=== PATIENT | female | born 2005 | race Caucasian/White ===

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

== ENCOUNTER → 2023-01-25 | Outpatient (CLI) | payer MEDICAID, SELFPAY | END | disposition home or self-care (01) | LOC: LABSPEC 14:28 | PROVIDERS: PCP Nurse Practitioner Family; Referring Provider Nurse Practitioner Women's Health; Visit Provider Nurse Practitioner Women's Health | DX: R10.2 Pelvic and perineal pain (principal) | CPT/HCPCS: 87070; 87077; 87205 ==

== ENCOUNTER 2023-02-07 10:44 | Emergency (ER) | payer MEDICAID, SELFPAY ==
[2023-02-07 10:45] VITALS: BP 128/55; PULSE 76; RESP 18; TEMP 35.7; O2SAT 99; BMI 27.6
--- NOTE | 2023-02-07 11:10 | RAD_ITS ---
EXAM: XR RIGHT ELBOW COMPLETE, 3 OR MORE VIEWS CLINICAL INDICATION: Injury/Pain TECHNIQUE: Frontal, lateral and oblique views of the right elbow. COMPARISON: No relevant prior studies available. FINDINGS: BONES/JOINTS: No acute fracture, subluxation or joint effusion. SOFT TISSUES: Normal. No soft tissue swelling or gas. No radiopaque foreign body. RAD/Elbow min 3 Views IMPRESSION: Intact right elbow. Electronically Signed: Joel Leiva MD at 12:34 EDT ,
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
[2023-02-07] MEDS: Ibuprofen 600 MG Tablet PO (12:38)
[2023-02-07 13:02] VITALS: RESP 17
== END 2023-02-07 13:03 | disposition home or self-care (01) ==
PROVIDERS: Emergency Provider Emergency Medicine; PCP Nurse Practitioner Family; Visit Provider Emergency Medicine
DX: S50.01XA Contusion of right elbow, initial encounter (principal); S50.11XA Contusion of right forearm, initial encounter; V89.0XXA Person injured in unspecified motor-vehicle accident, nontraffic, initial encounter; Y93.89 Activity, other specified; Z79.3 Long term (current) use of hormonal contraceptives
CPT/HCPCS: 73080; 99283

== ENCOUNTER 2023-09-01 13:38 | Emergency (ER) | payer BC, MEDICAID, SELFPAY ==
[2023-09-01 13:38] VITALS: BP 128/75; PULSE 78; RESP 16; TEMP 36.3; O2SAT 99; BMI 29.6
[2023-09-01 13:45] VITALS: O2SAT 98
--- NOTE | 2023-09-01 14:10 | RAD_ITS ---
INDICATION: cough EXAMINATION/TECHNIQUE: X-RAY - XR Chest 2 Views COMPARISON: No relevant prior comparison study available FINDINGS: LINES/DEVICES: None. LUNGS: No consolidation, edema or effusion. No pneumothorax. MEDIASTINUM AND CARDIOVASCULAR STRUCTURES: Cardiac silhouette not enlarged. Central airways and mediastinal contour are unremarkable. BONES AND SOFT TISSUES: Unremarkable. RAD/Chest PA and Lateral IMPRESSION: No radiographic evidence of acute cardiopulmonary disease. Electronically Signed: Baljinder Nuñez MD at 14:42 EST ,
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
== END 2023-09-01 14:50 | disposition home or self-care (01) ==
PROVIDERS: Emergency Provider Emergency Medicine; PCP Nurse Practitioner Family; Visit Provider Emergency Medicine
DX: B34.9 Viral infection, unspecified (principal); Z79.3 Long term (current) use of hormonal contraceptives; R05.9 Cough, unspecified
CPT/HCPCS: 71046; 99282

== ENCOUNTER → 2024-08-25 | Outpatient (CLI) | payer BC, SELFPAY ==
[2024-08-28 21:07] LABS: Chlamydia By Nucleic Acid AMP Negative (Negative); Gonococcus By Nucleic Acid AMP Negative (Negative)
== END | disposition home or self-care (01) ==
LOC: LABSPEC 11:28
PROVIDERS: PCP Nurse Practitioner Family; Referring Provider Advanced Practice Midwife; Visit Provider Advanced Practice Midwife
DX: Z20.2 Contact with and (suspected) exposure to infections with a predominantly sexual mode of transmission (principal)
CPT/HCPCS: 87491; 87591

== ENCOUNTER 2024-10-19 07:59 | Emergency (ER) | payer BC, SELFPAY ==
[2024-10-19 08:00] VITALS: BP 136/78; PULSE 79; RESP 16; TEMP 36.8; O2SAT 98; BMI 33.5
[2024-10-19 08:16] VITALS: BP 120/78; PULSE 74; RESP 18; TEMP 36.8; O2SAT 98
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
[2024-10-19] MEDS: Ibuprofen 600 MG Tablet PO (08:21)
[2024-10-19] MEDS: predniSONE 20 MG Tablet 40 MG PO (08:21)
== END 2024-10-19 08:28 | disposition home or self-care (01) ==
LOC: ED 08:23
PROVIDERS: Emergency Provider Emergency Medicine; PCP Nurse Practitioner Family; Visit Provider Emergency Medicine
DX: J06.9 Acute upper respiratory infection, unspecified (principal); R05.9 Cough, unspecified; Z79.3 Long term (current) use of hormonal contraceptives
CPT/HCPCS: 99282

== ENCOUNTER → 2025-04-23 | Outpatient (CLI) | payer BC, SELFPAY ==
--- NOTE | 2025-04-23 07:56 | US_ITS ---
PROCEDURE: PELVIC W/ TRANSVAGINAL 04/23/2025 REASON FOR EXAM: PAIN TECHNIQUE: PELVIC W/ TRANSVAGINAL COMPARISON: Pelvic ultrasound 05/18/2022 FINDINGS: Measurements: Uterus: 7.0 x 2.9 x 3.5 cm for volume of 37.7 mL Endometrial Thickness: 0.6 cm Right Ovary: 4.3 x 2.4 x 2.3 cm for volume of 12.6 mL. Left Ovary: 4.4 x 3.0 x 2.4 cm for volume of 16.3 mL. Uterus: Anteverted. Normal contour. Heterogeneous appearance of the cervix/lower uterine segment. Endometrium: Normal echotexture. Right ovary: Multiple prominent follicles, at least 10 on a single image Left ovary: Numerous prominent follicles, at least 10 on a single image Other adnexal findings: None. Cul-de-sac: No free intraperitoneal fluid identified. Color Doppler: Normal color flow doppler signal at both ovaries. US/Pelvic w/ Transvaginal IMPRESSION: 1. Polycystic morphology of the ovaries, correlate for clinical evidence of PC OS. 2. Heterogeneous appearance of the cervix/lower uterine segment, which may be normal variation. Consider repeat ultrasound in 12 weeks for re-evaluation. Reading Location: [facility]
== END | disposition home or self-care (01) ==
PROVIDERS: PCP Nurse Practitioner Family; Referring Provider Nurse Practitioner Women's Health; Visit Provider Nurse Practitioner Women's Health
DX: R10.2 Pelvic and perineal pain (principal); N94.6 Dysmenorrhea, unspecified
CPT/HCPCS: 76830; 76856

== ENCOUNTER 2025-06-26 13:40 | Emergency (ER) | payer BC, SELFPAY ==
[2025-06-26 13:41] VITALS: BP 129/79; PULSE 73; RESP 15; TEMP 36.6; O2SAT 96; BMI 34.2
--- NOTE | 2025-06-26 14:51 | US_ITS ---
PROCEDURE: TRANSVAGINAL NON- 06/26/2025 REASON FOR EXAM: LEFT LOWER QUADRANT PAIN/PELVIC PAIN TECHNIQUE: Procedure Code: USTVAG Modality: US Procedure: TRANSVAGINAL NON- COMPARISON: 05/18/2022. FINDINGS: Uterus: Measures 7.0 x 4.4 x 3.4 cm. Anteverted. No fibroids. Endometrium measures 8 mm, trilaminar. Cervix unremarkable. No intrauterine device. Right ovary: Measures 4.5 x 3.0 x 2.8 cm. Numerous small follicles with peripheral distribution. A 2.2 x 2.2 x 1.4 cm cyst is present, with crenulated margins and peripheral color Doppler flow, most compatible with a corpus luteum. Left ovary: Measures 3.9 x 3.2 x 2.3 cm. Numerous small follicles with peripheral distribution. No dominant cyst or solid mass. Adnexa: No adnexal mass identified. Cul-de-sac: No free fluid. Urinary bladder: Collapsed at time of exam. US/Transvaginal Non- IMPRESSION: *Numerous bilateral ovarian follicles with peripheral distribution, which may r epresent polycystic ovarian morphology. Correlate clinically for polycystic ovarian syndrome (PCOS). *Right ovarian 2.2 cm crenulated cyst with peripheral vascularity, most consist ent with a corpus luteum. *No adnexal mass or free fluid identified. Reading Location: [id number]
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
[2025-06-26 16:09] LABS: Mucous, Urine 0 SEEN /hpf (<or=2+)
[2025-06-26 16:12] LABS: Hematocrit 39.3 % (37-47); Hemoglobin 13.2 g/dL (12.0-15.0); Immature Granulocytes Count 0.040 X10^3/uL (0.0-0.0); Mean Corp Hgb Conc 33.6 g/dL (32-36); Mean Corpuscular Volume 90.1 fL (81-99); Mean Platelet Vol. 10.1 fl (6.2-12.0); NRBC Flagged by Analyzer 0 % (0-5); Platelet Count 300 K/mm3 (150-450); RBC Distribution Width CV 12.8 % (11.6-14.6); RBC Distribution Width SD 42.1 fl (35.1-43.9); Red Blood Count 4.36 M/mm3 (4.2-5.4); White Blood Count 14.3 K/mm3 (4.4-11.0)
[2025-06-26 16:20] LABS: Color, Urine Yellow (Yellow); Glucose, Dipstick Normal (Normal); Ketone-Dipstick Negative (Negative); Leukocyte Esterase-Dipstick 25 /ul (Negative); Nitrite-Dipstick Negative (Negative); Occult Blood-Urine Negative /ul (Negative); Protein-Dipstick 30 mg/dl (Negative); Specific Gravity, Urine 1.010 (1.002-1.030); Urine Bilirubin Dipstick Negative (Negative)
[2025-06-26 16:29] LABS: Red Blood Cells-Urine 0-5 SEEN /hpf (0-5); Squamous Epithelial Cells - UA 0-5 SEEN /hpf (5-10)
[2025-06-26 16:40] LABS: AST(SGOT) 18 U/L (<=31); Alanine Aminotransfer ALT/SGPT 17 U/L (<=34); Albumin, Serum 4.5 g/dL (3.5-5.0); Alkaline Phosphatase 104 U/L (35-104); Anion Gap 13 (5-15); BUN 13 mg/dL (4-19); BUN/Creat Ratio 18.4 RATIO (10-20); Calcium,Total 9.3 mg/dL (7.6-11.0); Carbon Dioxide 21.7 mmol/L (21.0-32.0); Chloride 103 mmol/L (98-108); Estimated Creatinine Clearance 118.36 ml/min (50-250); Globulin 3.1 g/dL (2.2-4.2); Glucose 84 mg/dL (70-99); Potassium 3.7 mmol/L (3.3-5.1)
[2025-06-26 16:46] VITALS: BP 124/71; PULSE 73; RESP 14; O2SAT 98
[2025-06-26 17:05] LABS: Internal QC Validated? YES +Cl - CLEAR BKGD; Record Kit Lot#, Serum Preg. 964736
[2025-06-26 17:07] LABS: Pregnancy, Serum, hCG Quali. POSITIVE Negative
[2025-06-26 18:00] VITALS: BP 128/76; PULSE 74; RESP 16; O2SAT 98
[2025-06-26 19:26] LABS: hCG Titer Quant., Serum 15 mIU/mL (<9 non-preg)
[2025-06-26 20:06] VITALS: BP 125/74; PULSE 68; RESP 16; TEMP 36.6; O2SAT 99
== END 2025-06-26 20:07 | disposition home or self-care (01) ==
PROVIDERS: Emergency Provider Emergency Medicine; PCP Nurse Practitioner Family; Visit Provider Emergency Medicine
DX: R10.2 Pelvic and perineal pain (principal); F41.9 Anxiety disorder, unspecified; Z79.899 Other long term (current) drug therapy; Z79.3 Long term (current) use of hormonal contraceptives; R89.1 Abnormal level of hormones in specimens from other organs, systems and tissues
CPT/HCPCS: 76830; 80053; 81001; 84702; 84703; 85025; 86900; 86901; 99283; A4216

== ENCOUNTER → 2025-06-28 | Outpatient (CLI) | payer BC, SELFPAY ==
[2025-06-28 16:00] LABS: Hematocrit 38.2 % (37-47); Hemoglobin 12.9 g/dL (12.0-15.0); Mean Corp Hgb Conc 33.8 g/dL (32-36); Mean Corpuscular Volume 90.1 fL (81-99); Mean Platelet Vol. 10.3 fl (6.2-12.0); Platelet Count 299 K/mm3 (150-450); RBC Distribution Width CV 12.9 % (11.6-14.6); RBC Distribution Width SD 42.5 fl (35.1-43.9); Red Blood Count 4.24 M/mm3 (4.2-5.4); White Blood Count 14.3 K/mm3 (4.4-11.0)
[2025-06-28 16:43] LABS: hCG Titer Quant., Serum 49 mIU/mL (<9 non-preg)
[2025-06-28 17:04] LABS: AST(SGOT) 16 U/L (<=31); Alanine Aminotransfer ALT/SGPT 15 U/L (<=34); Albumin, Serum 4.4 g/dL (3.5-5.0); Alkaline Phosphatase 104 U/L (35-104); Anion Gap 12 (5-15); BUN 9 mg/dL (4-19); BUN/Creat Ratio 14.6 RATIO (10-20); Calcium,Total 9.3 mg/dL (7.6-11.0); Carbon Dioxide 21.6 mmol/L (21.0-32.0); Chloride 106 mmol/L (98-108); Cholesterol 185 mg/dL (<=190); Ferritin 74 ng/mL (22-378); Globulin 3.0 g/dL (2.2-4.2); Glucose 73 mg/dL (70-99); Low Density Lipoprotein Calc. 117 mg/dL; Potassium 4.1 mmol/L (3.3-5.1); T3 Total - Triiodothyronine 1.36 ng/mL (0.80-2.00); Triglycerides 88 mg/dL; Very Low Density Lipoprotein 18 mg/dL (5-40); Vitamin B12 417 pg/mL (180-914); Vitamin D,25 Hydroxy 26.0 ng/mL (30-100); cholesterol:hdl ratio screen 3.69
[2025-06-28 17:30] LABS: Iron 51 ug/dL (50-170); Iron Binding Capacity,Total 290 ug/dL (250-450); Iron Binding Capacity,Unsat 239 ug/dL (228-428)
[2025-07-03 09:08] LABS: Thyroglobulin, Serum Qt. 18.8 ng/mL (1.5-38.5)
== END | disposition home or self-care (01) ==
LOC: LAB 14:48
PROVIDERS: PCP Nurse Practitioner Family; Referring Provider Emergency Medicine; Visit Provider Emergency Medicine
DX: Z13.220 Encounter for screening for lipoid disorders (principal); E66.811 Obesity, class 1; E61.1 Iron deficiency; Z68.30 Body mass index [BMI] 30.0-30.9, adult; Z83.49 Family history of other endocrine, nutritional and metabolic diseases; Z13.29 Encounter for screening for other suspected endocrine disorder; Z13.1 Encounter for screening for diabetes mellitus; Z83.3 Family history of diabetes mellitus; E55.9 Vitamin D deficiency, unspecified; R10.2 Pelvic and perineal pain; R79.89 Other specified abnormal findings of blood chemistry
CPT/HCPCS: 36415; 80053; 80061; 82306; 82607; 82728; 83036; 83525; 83540; 83550; 84432; 84439; 84443; 84480; 84702; 85027; 86376; 86800

== ENCOUNTER → 2025-06-30 | Outpatient (CLI) | payer BC, SELFPAY ==
--- OUTSIDE RECORDS SUMMARY | 2025-05-16 08:28 | XMS RPT_ITS ---
Author Name Auto Generated Organization OHIP Care Team Providers Care Blueprint Assembler Name Role Phone SWATI GASTELUM Primary Care Unavailable SWATI GASTELUM Primary Care Unavailable SWATI GASTELUM Primary Care Unavailable LIZZETTE TINEO Attending Unavailable MARC LARSEN Attending Unavailable SWATI GASTELUM Primary Care Unavailable LIZZETTE TINEO Attending Unavailable SWATI GASTELUM Primary Care Unavailable LIZZETTE TINEO Attending Unavailable SWATI GASTELUM Primary Care Unavailable SWATI GASTELUM Primary Care Unavailable SWATI GASTELUM Primary Care Unavailable SWATI GASTELUM Primary Care Unavailable PROBLEMS DATE TYPE CONDITION / CODE ATTENDING STATUS [facility] 05/18/2022 Active Mood disorder / F39(ICD-10) LIZZETTE TINEO Active [facility] 05/18/2022 Active ADHD (attention deficit hyperactivity disorder), combined type / F90.2(ICD-10) LIZZETTE TINEO Active [facility] 05/18/2022 Active MATEO (generalized anxiety disorder) / F41.1(ICD-10) LIZZETTE TINEO Active [facility] 05/16/2025 Active Obesity (BMI 30. 0-34.9) / E66.811(ICD-10) LIZZETTE TINEO Active [facility] 05/16/2025 Active Irritability / R45.4(ICD-10) LIZZETTE TINEO Active [facility] 05/16/2025 Active Anger / R45.4(ICD-10) LIZZETTE TINEO Active [facility] 05/16/2025 Active Situational anxi ety / F41.8(ICD-10) LIZZETTE TINEO Active [facility] 05/16/2025 Active Family history o f thyroid disease / Z83.49(ICD-10) RIVKALIZZETTE SANTIAGO Active [facility] 05/16/2025 Active Screening for th yroid disorder / Z13.29(ICD-10) RIVKAJOHN PAULLIZZETTE Active [facility] 05/16/2025 Active Screening for di abetes mellitus / Z13.1(ICD-10) LIZZETTE TINEO Active [facility] 05/16/2025 Active Family history o f diabetes mellitus (DM) / Z83.3(ICD-10) LIZZETTE TINEO Active [facility] 05/16/2025 Active Iron deficiency / E61.1(ICD-10) LIZZETTE TINEO Active [facility] 05/16/2025 Active Vitamin B12 defi ciency / E53.8(ICD-10) JOHN PAUL TINEOEKAH Active [facility] 05/16/2025 Active Vitamin D defici ency / E55.9(ICD-10) LIZZETTE TINEO Active [facility] 05/16/2025 Active Screening for li pid disorders / Z13.220(ICD-10) LIZZETTE TINEO [facility] 02/22/2025 Active Headache, unspec ified headache type / R51.9(ICD-10) MARC LARSEN Active [facility] 02/22/2025 Active Pharyngitis, unspecified etiology / J02.9(ICD-10) MARC LARSEN Active [facility] 02/22/2025 Active Diarrhea, unspec ified type / R19.7(ICD-10) MARC LARSEN [facility] 02/22/2025 Active Seasonal allergi c rhinitis, unspecified trigger / J30.2(ICD-10) MARC LARSEN [facility] 05/18/2022 Active Mood disorder (H CC) / F39(ICD-10) LIZZETTE TINEO [facility] PROCEDURES No Procedure Records Found RESULTS CNPN Observed: 05/17/2025 12:00 AM Status: COMPLETED Source: [facility] Telephone ([facility]) LUCRECIA BRICENO ([id number]) 1 F Date Time Provider Department 05/17/25 LIZZETTE TINEO During your visit today, we recorded the following information about you: Lizzette Tineo APRN.CNP 05/17/2025 3:47 PM Signed I saw Lucrecia in the office yesterday 05/16/2025. She informed me that she has recently seen Bisi Roberson CNP with [facility]. I obtained the notes and ultrasound from this encounter. Patient was confused because she was told by Bisi to use her control, but states a brand strategy manager in the office told her that she's not supposed to use it. Per [facility] progress note, it does say that she is to use Aviane. Please call and confirm this with their office so I am able to relay to Lucrecia. ANTONIETA Russ Kathryn, MA 05/17/2025 3:58 PM Signed Called office, was told that pt US confirmed PCOS and treatment is oral contraceptive so pt SHOULD be taking the control, according to her visit with WHEAT CLEANER on 04/30/25. ROBERTO Salgado Rebekah, APRN.CNP 05/17/2025 4:03 PM Signed Please call Lucrecia and let her know this. If she needs me to send in the OCP rx, I'm happy to do this for her. ANTONIETA Russ Kathryn, MA 05/17/2025 4:05 PM Signed Pt notified. She stated yes please send in rx. Selene REED. ROBERTO Salgado Rebekah, APRN.CNP 05/17/2025 4:07 PM Signed Sent, thank you. The following approved medication requests have been transmitted electronically. Requested Prescriptions Signed Prescriptions Disp Refills Levonorgestrel-Ethinyl Estrad (AVIANE) 0.1mg - 20mcg per tablet 84 tablet 1 Sig: Take 1 tablet by mouth once daily. Authorizing Provider: LIZZETTE TINEO APRN.CNP Allergies As of Date: 05/17/2025 Noted Allergy Reaction CELEXA (CITALOPRAM) 05/18/2022 5 - Intolerance Comments: Mood changes, suicidal METADATE CD (METHYLPHENIDATE) 08/11/2024 5 - Intolerance Comments: Makes her very mean VYVANSE (LISDEXAMFETAMINE) 05/18/2022 5 - Intolerance Comments: Mood changes RED DYE 08/08/2019 15 - Contraindication-Medical Cao*14 - Other: See Comments Comments: Patient becomes very hyper. No other reactions. Date Reviewed: 05/16/2025 Reviewed by: Lizzette Tineo APRN.HAND STONE POLISHER - Fully Assessed Reason for Visit: contact outside provider [Other] Primary Visit Diagnosis:PCOS (polycystic ovarian syndrome) [E28.2] Order(s):Levonorgestrel-Ethinyl Estrad (AVIANE) 0.1mg - 20mcg per tabletTake 1 tablet by mouth once daily.Disp: 84 tabletRfl: 1 Prescriptions as of 05/17/2025 - Levonorgestrel-Ethinyl Estrad (AVIANE) 0.1mg - 20mcg per tablet Take 1 tablet by mouth once daily. - Phentermine HCl 37.5 mg capsule Take 1 capsule by mouth daily before breakfast for 90 days. BMI 33.17 - busPIRone (BUSPAR) 5 mg tablet Take 1 tablet by mouth two times a day. Problem List As Of Date 05/17/2025 Noted Resolved MATEO (generalized anxiety disorder) [F41.1] 05/18/2022 ADHD (attention deficit hyperactivity disorder)*05/18/2022 Mood disorder (HCC) [F39] 05/18/2022 Prescriptions ordered this encounter Disp Refills Start End LEVONORGESTREL-ETHINYL ESTRADIOL 0.1* 84 t* 1 05/17/2025 Route: PO Sig: Take 1 tablet by mouth once daily. Medications Discontinued During This Encounter Prescriptions - LARISSIA 0.1-20 mg-mcg per tablet (Discontinued) Take 1 tablet by mouth once daily. Encounter Status:Closed by LIZZETTE TINEO on 05/17/25 PROGRESS Observed: 05/16/2025 6:58 PM Status: COMPLETED Source: [facility] ID: [id number] Author: LIZZETTE TINEO APRN.HAND STONE POLISHER Service: ? Author Type: Nurse Practitioner Type: Progress Notes Filed: 05/16/2025 19:05 Note Text: 05/16/2025 Recording using ambient Chrends software for draft documentation of the visit was discussed with the patient/authorized guest experience representative; all questions welcomed and answered. Patient/authorized guest experience representative agreed to proceed HPI: Lucrceia Briceno is a 19-year-old female with a history of anxiety, ADD, and PCOS, presenting for medication management. Anxiety: - Reports increased anxiety. - Previously on Cymbalta, but no longer taking it. - Discussed with therapist about taking BuSpar daily. ADD: - History of ADD, previously tried Adderall but did not continue. - Inquires about trying phentermine instead of Adderall. PCOS: - Recently diagnosed with PCOS. - Reports significant weight gain, going from size 4 to size 12. - Has not started any medication for PCOS. - Confused about instructions regarding control; was told not to take it by the brand strategy manager. Family History: - Strong family history of thyroid disorders. - Mother also has PCOS. PAST MEDICAL HISTORY Diagnosis Date ADHD (attention deficit hyperactivity disorder) 10/04/2008 Anxiety Current Outpatient Medications on File Prior to Visit Medication Sig LARISSIA 0.1-20 mg-mcg per tablet Take 1 tablet by mouth once daily. ondansetron orally disintegrating (ZOFRAN ODT) 4 mg disintegrating tablet Take 1 tablet by mouth every 6 hours as needed for nausea/vomiting. No current facility-administered medications on file prior to visit. Review of Systems: Constitutional: (+) weight gain, (+) fatigue Musculoskeletal: (+) muscle pain Psychiatric: (+) anxiety, (+) needle phobia Neurological: (-) syncope Physical Exam: BP 97/65 (BP Site: Left Arm, BP Position: Sitting, BP Cuff Size: Regular Adult) Pulse 71 Wt 81.6 kg (179 lb 12.8 oz) LMP 03/29/2023 (Exact Date) SpO2 98% BMI 33.17 kg/m? GENERAL: NAD, alert and oriented. SKIN: Unremarkable, no rash or skin lesions. HEAD: Normocephalic. NECK: Supple, no lymphadenopathy, normal thyroid, no carotid bruits. LUNGS: Clear to auscultation bilaterally, no wheezes/rhonchi/rales. HEART: Regular rate and rhythm, no murmurs. No ectopy. EXTREMITIES: Normal, no deformities, no skin discoloration, no edema. NEURO: Awake, alert and oriented x3, cranial nerves II-XII grossly intact, normal gait, no involuntary motions. Diagnostics Reviewed: Labs: - TSH: Within normal range - Free T4: Slightly low Imaging: - Ultrasound: Findings consistent with polycystic ovaries (PCOS) Assessment/Plan: 1. Irritability (R45.4) 2. Anger (R45.4) 3. MATEO (generalized anxiety disorder) (F41.1) 4. Mood disorder (F39) 5. Situational anxiety (F41.8) - Anxiety is worsening; previously on Cymbalta, now discontinued. - Start BuSpar BID; discussed potential side effects and instructed to report any significant mood changes, increased depression, or anxiety. - Follow-up in 4-6 weeks to assess response and tolerability. 6. ADHD (attention deficit hyperactivity disorder), combined type (F90.2) - Previously trialed Adderall without sustained benefit. - Start phentermine 15 mg daily; discussed potential side effects, including anxiety and mood changes, and instructed to report any significant changes. 7. Obesity (BMI 30.0-34.9) (E66.811) - Weight gain noted; discussed potential benefits of phentermine for weight management. 8. Family history of thyroid disease (Z83.49) 9. Screening for thyroid disorder (Z13.29) - Family history of thyroid disease; TSH within normal range, free T4 slightly low. - Order repeat thyroid labs to monitor thyroid function. - Instructed to report any symptoms of thyroid dysfunction, such as difficulty swallowing or sensation of fullness in the throat. 10. Screening for diabetes mellitus (Z13.1) 11. Family history of diabetes mellitus (DM) (Z83.3) - Family history of diabetes mellitus. - Order fasting glucose and HbA1c to screen for diabetes. 12. Iron deficiency (E61.1) - Order iron studies to assess for iron deficiency. 13. Vitamin B12 deficiency (E53.8) - Order vitamin B12 level to assess for deficiency. 14. Vitamin D deficiency (E55.9) - Order vitamin D level to assess for deficiency. 15. Screening for lipid disorders (Z13.220) - Order fasting lipid panel to screen for lipid disorders. The patient indicates understanding of these issues and agrees with the plan. Red flag symptoms reviewed as needed. Follow up: Lizzette Tineo APRN.CNP [facility] checked and validated. All prescriptions have been APPROPRIATELY filled. No suspicious activity was identified. 05/16/2025 by Lizzette Tineo CNP. CNOV Observed: 05/16/2025 8:40 AM Status: COMPLETED Source: [facility] LUCRECIA BRICENO ([id number]) 1 F Date Time Provider Department 05/16/25 8:40 AM LIZZETTE TINEO During your visit today, we recorded the following information about you: Pulse Blood pressure Weight 71/minute 97/65 81.6 kg Lizzette Tineo APRN.CNP 05/16/2025 7:05 PM Signed 05/16/2025 Recording using Savelli software for draft documentation of the visit was discussed with the patient/authorized guest experience representative; all questions welcomed and answered. Patient/authorized guest experience representative agreed to proceed HPI: Lucrecia Briceno is a 19-year-old female with a history of anxiety, ADD, and PCOS, presenting for medication management. Anxiety: - Reports increased anxiety. - Previously on Cymbalta, but no longer taking it. - Discussed with therapist about taking BuSpar daily. ADD: - History of ADD, previously tried Adderall but did not continue. - Inquires about trying phentermine instead of Adderall. PCOS: - Recently diagnosed with PCOS. - Reports significant weight gain, going from size 4 to size 12. - Has not started any medication for PCOS. - Confused about instructions regarding control; was told not to take it by the brand strategy manager. Family History: - Strong family history of thyroid disorders. - Mother also has PCOS. PAST MEDICAL HISTORY Diagnosis Date ADHD (attention deficit hyperactivity disorder) 10/04/2008 Anxiety Current Outpatient Medications on File Prior to Visit Medication Sig LARISSIA 0.1-20 mg-mcg per tablet Take 1 tablet by mouth once daily. ondansetron orally disintegrating (ZOFRAN ODT) 4 mg disintegrating tablet Take 1 tablet by mouth every 6 hours as needed for nausea/vomiting. No current facility-administered medications on file prior to visit. Review of Systems: Constitutional: (+) weight gain, (+) fatigue Musculoskeletal: (+) muscle pain Psychiatric: (+) anxiety, (+) needle phobia Neurological: (-) syncope Physical Exam: BP 97/65 (BP Site: Left Arm, BP Position: Sitting, BP Cuff Size: Regular Adult) Pulse 71 Wt 81.6 kg (179 lb 12.8 oz) LMP 03/29/2023 (Exact Date) SpO2 98% BMI 33.17 kg/m? GENERAL: NAD, alert and oriented. SKIN: Unremarkable, no rash or skin lesions. HEAD: Normocephalic. NECK: Supple, no lymphadenopathy, normal thyroid, no carotid bruits. LUNGS: Clear to auscultation bilaterally, no wheezes/rhonchi/rales. HEART: Regular rate and rhythm, no murmurs. No ectopy. EXTREMITIES: Normal, no deformities, no skin discoloration, no edema. NEURO: Awake, alert and oriented x3, cranial nerves II-XII grossly intact, normal gait, no involuntary motions. Diagnostics Reviewed: Labs: - TSH: Within normal range - Free T4: Slightly low Imaging: - Ultrasound: Findings consistent with polycystic ovaries (PCOS) Assessment/Plan: 1. Irritability (R45.4) 2. Anger (R45.4) 3. MATEO (generalized anxiety disorder) (F41.1) 4. Mood disorder (F39) 5. Situational anxiety (F41.8) - Anxiety is worsening; previously on Cymbalta, now discontinued. - Start BuSpar BID; discussed potential side effects and instructed to report any significant mood changes, increased depression, or anxiety. - Follow-up in 4-6 weeks to assess response and tolerability. 6. ADHD (attention deficit hyperactivity disorder), combined type (F90.2) - Previously trialed Adderall without sustained benefit. - Start phentermine 15 mg daily; discussed potential side effects, including anxiety and mood changes, and instructed to report any significant changes. 7. Obesity (BMI 30.0-34.9) (E66.811) - Weight gain noted; discussed potential benefits of phentermine for weight management. 8. Family history of thyroid disease (Z83.49) 9. Screening for thyroid disorder (Z13.29) - Family history of thyroid disease; TSH within normal range, free T4 slightly low. - Order repeat thyroid labs to monitor thyroid function. - Instructed to report any symptoms of thyroid dysfunction, such as difficulty swallowing or sensation of fullness in the throat. 10. Screening for diabetes mellitus (Z13.1) 11. Family history of diabetes mellitus (DM) (Z83.3) - Family history of diabetes mellitus. - Order fasting glucose and HbA1c to screen for diabetes. 12. Iron deficiency (E61.1) - Order iron studies to assess for iron deficiency. 13. Vitamin B12 deficiency (E53.8) - Order vitamin B12 level to assess for deficiency. 14. Vitamin D deficiency (E55.9) - Order vitamin D level to assess for deficiency. 15. Screening for lipid disorders (Z13.220) - Order fasting lipid panel to screen for lipid disorders. The patient indicates understanding of these issues and agrees with the plan. Red flag symptoms reviewed as needed. Follow up: Lizzette Tineo APRN.CNP PDMP website checked and validated. All prescriptions have been APPROPRIATELY filled. No suspicious activity was identified. 05/16/2025 by Lizzette Tineo CNP. Allergies As of Date: 05/16/2025 Noted Allergy Reaction CELEXA (CITALOPRAM) 05/18/2022 5 - Intolerance Comments: Mood changes, suicidal METADATE CD (METHYLPHENIDATE) 08/11/2024 5 - Intolerance Comments: Makes her very mean VYVANSE (LISDEXAMFETAMINE) 05/18/2022 5 - Intolerance Comments: Mood changes RED DYE 08/08/2019 15 - Contraindication-Medical Cao*14 - Other: See Comments Comments: Patient becomes very hyper. No other reactions. Date Reviewed: 05/16/2025 Reviewed by: Rivka, Lizzette, ASP NET MVC DEVELOPER.HAND STONE POLISHER - Fully Assessed Reason for Visit: Medication Follow-up [270] Primary Visit Diagnosis:Irritability [R45.4] Other Visit Diagnoses:Anger [R45.4] MATEO (generalized anxiety disorder) [F41.1] Mood disorder [F39] Situational anxiety [F41.8] ADHD (attention deficit hyperactivity disorder), combined type [F90.2] Obesity (BMI 30.0-34.9) [E66.811] Family history of thyroid disease [Z83.49] Screening for thyroid disorder [Z13.29] Screening for diabetes mellitus [Z13.1] Family history of diabetes mellitus (DM) [Z83.3] Iron deficiency [E61.1] Vitamin B12 deficiency [E53.8] Vitamin D deficiency [E55.9] Screening for lipid disorders [Z13.220] Order(s):Phentermine HCl 37.5 mg capsuleTake 1 capsule by mouth daily before breakfast for 90 days. BMI 33.17Disp: 30 capsuleRfl: 2 busPIRone (BUSPAR) 5 mg tabletTake 1 tablet by mouth two times a day.Disp: 60 tabletRfl: 2 IRON AND TIBC [SQIRON] Order #: [id number] FUTURE FERRITIN [SQFERR] Order #: [id number] FUTURE COMPLETE BLOOD COUNT [SQCBC] Order #: [id number] FUTURE COMPREHENSIVE METABOLIC PANEL [SQCMP] Order #: [id number] FUTURE THYROID STIMULATING HORMONE [SQTSH] Order #: [id number] FUTURE T3 [SQT3] Order #: [id number] FUTURE T4 FREE/FREE THYROXINE [SQFT4] Order #: [id number] FUTURE INSULIN, TOTAL, SERUM [SQINSULN] Order #: [id number] FUTURE HEMOGLOBIN A1C [UXDEZ6Q] Order #: [id number] FUTURE THYROID PEROXIDASE ANTIBODY [SQMICRO] Order #: [id number] FUTURE THYROGLOBULIN ANTIBODY [SQTGAB] Order #: [id number] FUTURE VITAMIN D 25 HYDROXY [SQVITD] Order #: [id number] FUTURE VITAMIN B12 [SQB12] Order #: [id number] FUTURE LIPID PANEL, FASTING [SQLIPB] Order #: [id number] FUTURE Prescriptions as of 05/16/2025 - Phentermine HCl 37.5 mg capsule Take 1 capsule by mouth daily before breakfast for 90 days. BMI 33.17 - busPIRone (BUSPAR) 5 mg tablet Take 1 tablet by mouth two times a day. - LARISSIA 0.1-20 mg-mcg per tablet Take 1 tablet by mouth once daily. Problem List As Of Date 05/16/2025 Noted Resolved MATEO (generalized anxiety disorder) [F41.1] 05/18/2022 ADHD (attention deficit hyperactivity disorder)*05/18/2022 Mood disorder (HCC) [F39] 05/18/2022 Prescriptions ordered this encounter Disp Refills Start End BUSPIRONE 5 MG TABLET 270 * 1 05/16/2025 05/16/2025 Route: PO Sig: Take 1 tablet by mouth three times a day. Disc: Adjust Sig - Block E-Cancel PHENTERMINE 37.5 MG CAPSULE 30 c* 2 05/16/2025 08/14/2025 Route: PO Sig: Take 1 capsule by mouth daily before breakfast for 90 days. BMI 33.17 BUSPIRONE 5 MG TABLET 60 t* 2 05/16/2025 08/14/2025 Route: PO Sig: Take 1 tablet by mouth two times a day. Medications Discontinued During This Encounter Prescriptions - Bnnjaxvlwrzkikz-Eikswakjr-RD (BROMFED DM) 2-30-10 mg/5 mL syrup (Discontinued) Reported on 05/16/2025 - carbonyl iron 15 mg chew (Discontinued) Reported on 05/16/2025 - cetirizine (ZYRTEC) 10 mg tablet (Discontinued) Reported on 05/16/2025 - DULoxetine (CYMBALTA) 20 mg capsule (Discontinued) Reported on 05/16/2025 - MULTIVITAMIN ORAL (Discontinued) Take by mouth. - oxymetazoline (AFRIN, OXYMETAZOLINE,) 0.05 % nasal spray (Discontinued) Reported on 05/16/2025 - busPIRone (BUSPAR) 5 mg tablet (Discontinued) Take 1 tablet by mouth two times a day as needed. - busPIRone (BUSPAR) 5 mg tablet (Discontinued) Take 1 tablet by mouth three times a day. - ondansetron orally disintegrating (ZOFRAN ODT) 4 mg disintegrating tablet (Discontinued) Take 1 tablet by mouth every 6 hours as needed for nausea/vomiting. Level of Service: OFFICE/OUTPATIENT ESTABLISHED HIGH [facility] 40 MIN [[id number]] Disposition: Return for 4-6 week f/u, Buspar/phentermine. Follow-up and Disposition History for Encounter Date Provider Department Center 05/16/2025 [id number]-IEURGIBFLIZZETTE TINEO Amanda [facility] Encounter Status:Closed by LIZZETTE TINEO on 05/16/25 CNCO Observed: 05/16/2025 12:00 AM Status: COMPLETED Source: [facility] Letter Text CNPAugustine Observed: 05/16/2025 12:00 AM Status: COMPLETED Source: [facility] Telephone ([facility]) LUCRECIA BRICENO ([id number]) 1 F Date Time Provider Department 05/16/25 LIZZETTE TINEO During your visit today, we recorded the following information about you: Lizzette Tineo APRN.CNP 05/16/2025 9:22 AM Signed Please obtain patients records and labs from [facility] for my review. ANTONIETA Russ [place], MA 05/16/2025 9:43 AM Addendum Checked [facility] and no recent labs. Only office visit and US. Report placed in your inbox to review. Destiney Croft MA Allergies As of Date: 05/16/2025 Noted Allergy Reaction CELEXA (CITALOPRAM) 05/18/2022 5 - Intolerance Comments: Mood changes, suicidal METADATE CD (METHYLPHENIDATE) 08/11/2024 5 - Intolerance Comments: Makes her very mean VYVANSE (LISDEXAMFETAMINE) 05/18/2022 5 - Intolerance Comments: Mood changes RED DYE 08/08/2019 15 - Contraindication-Medical Cao*14 - Other: See Comments Comments: Patient becomes very hyper. No other reactions. Date Reviewed: 05/16/2025 Reviewed by: Lizzette Tineo APRN.HAND STONE POLISHER - Fully Assessed Reason for Visit: Request Outside Medical Records [[id number]] Prescriptions as of 05/16/2025 - Phentermine HCl 37.5 mg capsule Take 1 capsule by mouth daily before breakfast for 90 days. BMI 33.17 - busPIRone (BUSPAR) 5 mg tablet Take 1 tablet by mouth two times a day. - ondansetron orally disintegrating (ZOFRAN ODT) 4 mg disintegrating tablet Take 1 tablet by mouth every 6 hours as needed for nausea/vomiting. - LARISSIA 0.1-20 mg-mcg per tablet Take 1 tablet by mouth once daily. Problem List As Of Date 05/16/2025 Noted Resolved MATEO (generalized anxiety disorder) [F41.1] 05/18/2022 ADHD (attention deficit hyperactivity disorder)*05/18/2022 Mood disorder (HCC) [F39] 05/18/2022 Encounter Status:Closed by LIZZETTE TINEO on 05/16/25 PROGRESS Observed: 02/22/2025 9:10 AM Status: COMPLETED Source: [facility] ID: [id number] Author: MARC LARSEN APRN.HAND STONE POLISHER Service: ? Author Type: Nurse Practitioner Type: Progress Notes Filed: 02/22/2025 09:24 Note Text: [facility] Subjective The patient is a 19-year-old female presenting with a headache, sore throat, and diarrhea. HPI Headache: - Onset 2 days ago. - Describes pain as involving the entire face. - Taking ibuprofen with no relief. - History of migraines triggered by lack of sleep. Sore Throat: - Onset 2 days ago. - Denies otalgia. Diarrhea: - Onset 2 days ago. - Believes it is related to anxiety. Allergies: - History of seasonal allergies. - Currently taking an OTC antihistamine, possibly Zyrtec or Leydi. [place]; exposure to hay and allergens. Review of Systems Head: (+) headaches Ears/Nose/Mouth/Throat: (+) sore throat, (+) nasal discharge (green), (-) ear pain, (-) hearing changes Gastrointestinal: (+) diarrhea Psychiatric: (+) anxiety Objective BP 112/74 (BP Site: Right Arm, BP Position: Sitting, BP Cuff Size: Regular Adult) Pulse 65 Temp 36.3 ?C (97.3 ?F) (Right Tympanic) Resp 16 Wt 78.8 kg (173 lb 13.3 oz) LMP 03/29/2023 (Exact Date) SpO2 98% BMI 32.07 kg/m? Physical Exam General: No acute distress. HEENT: Excessive cerumen in left ear canal, minimal cerumen in right ear canal; posterior pharyngeal drainage noted, no tonsillar hypertrophy; no lymphadenopathy. CV: Normal heart sounds. Resp: Clear to auscultation bilaterally. MDM 1. Headache, unspecified headache type (R51.9) - Headache for 2 days, likely secondary to sinus congestion from allergies. - Prescribed steroid to alleviate headache. 2. Pharyngitis, unspecified etiology (J02.9) - Mild throat discomfort noted; no significant swelling observed on examination. - Likely secondary to postnasal drip from allergies. 3. Diarrhea, unspecified type (R19.7) - Mild, likely secondary to anxiety. 4. Seasonal allergic rhinitis, unspecified trigger (J30.2) - Symptoms include facial pain, green nasal discharge, and headache. - Prescribed Zyrtec, cold medicine, and nasal spray to manage symptoms. - Advised patient to use peroxide in the left ear to address cerumen impaction. - Provided detailed instructions on medication use and management of symptoms. - Go to [facility] in [facility] to pickle processor your prescriptions: Zyrtec, the prescribed steroid, cold medicine, and nasal spray. - Take Zyrtec daily as directed for your allergy symptoms. - Use the prescribed steroid as directed to help relieve your headache. - Take the cold medicine and use the nasal spray as needed over the next couple weeks to dry up congestion and allergy drainage. - Apply cicb-tbb-peblvrx hydrogen peroxide drops in your left ear to soften and help clear the wax buildup. - Follow the dosing instructions and tips provided in the paperwork sent with your prescriptions. Medical Decision Making: Problems: Moderate: New problem with uncertain prognosis Data: Unique source(s) for external note(s) reviewed: 1 Risk: Moderate: Drug management Medical Decision Making Level: 4 - Moderate Procedures CNOV Observed: 02/22/2025 9:00 AM Status: COMPLETED Source: [facility] Office Visit ([email or web address]) LUCRECIA BRICENO ([id number]) 1 F Date Time Provider Department 02/22/25 9:00 AM MRAC LARSEN During your visit today, we recorded the following information about you: Temperature Pulse Respiration Blood pressure 97.3 degrees 65/minute 16/minute 112/74 Weight 78.8 kg Marc Larsen APRN.[facility] 02/22/2025 9:24 AM Signed [facility] Subjective The patient is a 19-year-old female presenting with a headache, sore throat, and diarrhea. HPI Headache: - Onset 2 days ago. - Describes pain as involving the entire face. - Taking ibuprofen with no relief. - History of migraines triggered by lack of sleep. Sore Throat: - Onset 2 days ago. - Denies otalgia. Diarrhea: - Onset 2 days ago. - Believes it is related to anxiety. Allergies: - History of seasonal allergies. - Currently taking an OTC antihistamine, possibly Zyrtec or Leydi. [place] exposure to [place] and allergens. Review of Systems Head: (+) headaches Ears/Nose/Mouth/Throat: (+) sore throat, (+) nasal discharge (green), (-) ear pain, (-) hearing changes Gastrointestinal: (+) diarrhea Psychiatric: (+) anxiety Objective BP 112/74 (BP Site: Right Arm, BP Position: Sitting, BP Cuff Size: Regular Adult) Pulse 65 Temp 36.3 ?C (97.3 ?F) (Right Tympanic) Resp 16 Wt 78.8 kg (173 lb 13.3 oz) LMP 03/29/2023 (Exact Date) SpO2 98% BMI 32.07 kg/m? Physical Exam General: No acute distress. HEENT: Excessive cerumen in left ear canal, minimal cerumen in right ear canal; posterior pharyngeal drainage noted, no tonsillar hypertrophy; no lymphadenopathy. CV: Normal heart sounds. Resp: Clear to auscultation bilaterally. MDM 1. Headache, unspecified headache type (R51.9) - Headache for 2 days, likely secondary to sinus congestion from allergies. - Prescribed steroid to alleviate headache. 2. Pharyngitis, unspecified etiology (J02.9) - Mild throat discomfort noted; no significant swelling observed on examination. - Likely secondary to postnasal drip from allergies. 3. Diarrhea, unspecified type (R19.7) - Mild, likely secondary to anxiety. 4. Seasonal allergic rhinitis, unspecified trigger (J30.2) - Symptoms include facial pain, green nasal discharge, and headache. - Prescribed Zyrtec, cold medicine, and nasal spray to manage symptoms. - Advised patient to use peroxide in the left ear to address cerumen impaction. - Provided detailed instructions on medication use and management of symptoms. - Go to [facility] in [facility] to pickle processor your prescriptions: Zyrtec, the prescribed steroid, cold medicine, and nasal spray. - Take Zyrtec daily as directed for your allergy symptoms. - Use the prescribed steroid as directed to help relieve your headache. - Take the cold medicine and use the nasal spray as needed over the next couple weeks to dry up congestion and allergy drainage. - Apply dftn-qhg-cnniyjv hydrogen peroxide drops in your left ear to soften and help clear the wax buildup. - Follow the dosing instructions and tips provided in the paperwork sent with your prescriptions. Medical Decision Making: Problems: Moderate: New problem with uncertain prognosis Data: Unique source(s) for external note(s) reviewed: 1 Risk: Moderate: Drug management Medical Decision Making Level: 4 - Moderate Procedures Marc Larsen APRN.[facility] 02/22/2025 9:20 AM Signed UPPER RESPIRATORY INFECTIONS Most cases are caused by viruses and most cases are mild, temporary, and harmless. Symptoms can last 2 to 3 weeks and can include: nasal congestion, sore throat, coughing, muscles aches, headaches, nausea, diarrhea, fatigue and fever. Rhinovirus, RSV, Covid, Influenza A and B, Parainfluenza are just a few COMMON respiratory viruses that cause sinus symptoms and cough. Antibiotics do NOT treat viruses. Taking 1 round of antibiotics can destroy your gut normal antonia (good bacteria) for up to 6 months. This can affect your weight, skin, digestion, mental health and immune system. 1. Drink plenty of fluids. 2. Get lots of rest. 3. Avoid dehydrants such as caffeine and alcohol. 4. Nasal saline is an effective decongestant and be used frequently throughout the day. 5. To loosen phlegm and help coughing, drink plenty of fluids and using a humidifier. 6. For sore throats, it is ok to use cough drops, throat sprays, or gargling warm salt water. 7. Always cover your mouth when you cough or sneeze, and wash your hands frequently. Avoid crowded areas like shopping centers, movies while you are sick so you don't pickle processor a different virus, or infect others. 8. Avoid exposure to cigarettes or fumes. 9. Avoid irritants such as potpourri, dust, perfumes, scented candles and scented sprays 10. Air conditioning is an effective allergen and irritant avoidance strategy in the spring, summer and fall. 11. Honey is an effective cough suppressant. Try one tsp 3-4 times per day. 12. Mucinex every 12 hours with a full 10-12 ounces of water 13. Afrin for 3-4 days for congestion and post nasal drainage is both safe and effective Allergies As of Date: 02/22/2025 Noted Allergy Reaction CELEXA (CITALOPRAM) 05/18/2022 5 - Intolerance Comments: Mood changes, suicidal METADATE CD (METHYLPHENIDATE) 08/11/2024 5 - Intolerance Comments: Makes her very mean VYVANSE (LISDEXAMFETAMINE) 05/18/2022 5 - Intolerance Comments: Mood changes RED DYE 08/08/2019 15 - Contraindication-Medical Cao*14 - Other: See Comments Comments: Patient becomes very hyper. No other reactions. Date Reviewed: 02/22/2025 Reviewed by: Faib Mejia MA - Fully Assessed Reason for Visit: Sinusitis [127] Cmt: Really bad headache. Going on for two days. Diarrhea. Minor sore throat. Needs work note Primary Visit Diagnosis:Headache, unspecified headache type [R51.9] Other Visit Diagnoses:Pharyngitis, unspecified etiology [J02.9] Diarrhea, unspecified type [R19.7] Seasonal allergic rhinitis, unspecified trigger [J30.2] Order(s):cetirizine (ZYRTEC) 10 mg tabletTake 1 tablet by mouth once daily.Disp: 30 tabletRfl: 0 Fpksvdkabvgrewt-Dziskgbva-SH (BROMFED DM) 2-30-10 mg/5 mL syrupTake 5 mL by mouth four times a day as needed.Disp: 118 mLRfl: 0 oxymetazoline (AFRIN, OXYMETAZOLINE,) 0.05 % nasal sprayUse 2-3 sprays in each nostril two times a day. Use as directed. For a maximum of 3 (three) days.Disp: 22 mLRfl: 0 methylPREDNISolone (MEDROL, PAVEL,) 4 mg Dose-PackTake as instructed per package.Disp: 21 tabletRfl: 0 Prescriptions as of 02/22/2025 - cetirizine (ZYRTEC) 10 mg tablet Take 1 tablet by mouth once daily. - Wiewmmdarnxwqly-Sgazskmmf-KW (BROMFED DM) 2-30-10 mg/5 mL syrup Take 5 mL by mouth four times a day as needed. - oxymetazoline (AFRIN, OXYMETAZOLINE,) 0.05 % nasal spray Use 2-3 sprays in each nostril two times a day. Use as directed. For a maximum of 3 (three) days. - methylPREDNISolone (MEDROL, PAVEL,) 4 mg Dose-Pack Take as instructed per package. - DULoxetine (CYMBALTA) 20 mg capsule Take 1 capsule by mouth once daily. - busPIRone (BUSPAR) 5 mg tablet Take 1 tablet by mouth two times a day as needed. - ondansetron orally disintegrating (ZOFRAN ODT) 4 mg disintegrating tablet Take 1 tablet by mouth every 6 hours as needed for nausea/vomiting. - MULTIVITAMIN ORAL Take by mouth. - carbonyl iron 15 mg chew Take 1 tablet by mouth once daily. - LARISSIA 0.1-20 mg-mcg per tablet Take 1 tablet by mouth once daily. Problem List As Of Date 02/22/2025 Noted Resolved MATEO (generalized anxiety disorder) [F41.1] 05/18/2022 ADHD (attention deficit hyperactivity disorder)*05/18/2022 Mood disorder (HCC) [F39] 05/18/2022 Other instructions from your clinician: UPPER RESPIRATORY INFECTIONS Most cases are caused by viruses and most cases are mild, temporary, and harmless. Symptoms can last 2 to 3 weeks and can include: nasal congestion, sore throat, coughing, muscles aches, headaches, nausea, diarrhea, fatigue and fever. Rhinovirus, RSV, Covid, Influenza A and B, Parainfluenza are just a few COMMON respiratory viruses that cause sinus symptoms and cough. Antibiotics do NOT treat viruses. Taking 1 round of antibiotics can destroy your gut normal antonia (good bacteria) for up to 6 months. This can affect your weight, skin, digestion, mental health and immune system. 1. Drink plenty of fluids. 2. Get lots of rest. 3. Avoid dehydrants such as caffeine and alcohol. 4. Nasal saline is an effective decongestant and be used frequently throughout the day. 5. To loosen phlegm and help coughing, drink plenty of fluids and using a humidifier. 6. For sore throats, it is ok to use cough drops, throat sprays, or gargling warm salt water. 7. Always cover your mouth when you cough or sneeze, and wash your hands frequently. Avoid crowded areas like shopping centers, movies while you are sick so you don't pickle processor a different virus, or infect others. 8. Avoid exposure to cigarettes or fumes. 9. Avoid irritants such as potpourri, dust, perfumes, scented candles and scented sprays 10. Air conditioning is an effective allergen and irritant avoidance strategy in the spring, summer and fall. 11. Honey is an effective cough suppressant. Try one tsp 3-4 times per day. 12. Mucinex every 12 hours with a full 10-12 ounces of water 13. Afrin for 3-4 days for congestion and post nasal drainage is both safe and effective Prescriptions ordered this encounter Disp Refills Start End CETIRIZINE 10 MG TABLET 30 t* 0 02/22/2025 Route: ORAL Sig: Take 1 tablet by mouth once daily. MZJHFIRTPKPVGIE-PKTUDIEFTTBGTBI-TI 2* 118 * 0 02/22/2025 Route: ORAL Sig: Take 5 mL by mouth four times a day as needed. OXYMETAZOLINE 0.05 % NASAL SPRAY 22 mL 0 02/22/2025 Route: EACH NOSTRIL Sig: Use 2-3 sprays in each nostril two times a day. Use as directed. For a maximum of 3 (three) days. METHYLPREDNISOLONE 4 MG TABLETS IN A* 21 t* 0 02/22/2025 02/28/2025 Sig: Take as instructed per package. Level of Service: OFFICE/OUTPATIENT ESTABLISHED LOW MDM 20 MIN [54895] Letter Text Encounter Status:Closed by MARC LARSEN on 02/22/25 PROGRESS Observed: 11/24/2024 12:27 PM Status: COMPLETED Source: [facility] ID: [id number] Author: LIZZETTE TINEO APRN.[employer] Service: ? Author Type: Nurse Practitioner Type: Progress Notes Filed: 11/24/2024 14:36 Note Text: Chief Complaint Patient presents with: Medication Follow-up HPI Lucrecia Briceno is a 19 year old female who presents here today for Above Complaints.. Buspar - states this is helping with stress and does not want to change regimen. Mood overall is okay, states she is angry all the time and easily irritated by any little things. States this has been going on for a couple months and is getting worse. Denies major life stressors that triggered this. Adderall not helping- feels like she is drugged out not able to focus. Wants to stop taking, ADHD is ok, doesn't feel like she needs to change this. Past medical history, appointments, medications, allergies reviewed. Previous Medical History PAST MEDICAL HISTORY Diagnosis Date ADHD (attention deficit hyperactivity disorder) 10/04/2008 Anxiety Previous Surgical History PAST SURGICAL HISTORY Procedure Laterality Date TONSILLECTOMY AND ADENOIDECTOMY <AGE 10 Family History FAMILY HISTORY Problem Relation Age of Onset Hypothyroidism Mother Migraines Mother Anxiety disorder Mother other (pcos) Mother Hypertension Father ADD/ADHD Father Heart Attack Father ADD/ADHD Brother other (eoe) Brother Breast Cancer Maternal Grandmother Anxiety disorder Maternal Grandmother Depression Maternal Grandmother Hypothyroidism Maternal Grandmother Arthritis Maternal Grandmother Hypertension Maternal Grandfather Anxiety disorder Maternal Grandfather Depression Maternal Grandfather Arthritis Maternal Grandfather Breast Cancer Paternal Grandmother No Known Problems Paternal Grandfather Patient Allergies ALLERGIES Allergen Reactions Celexa [Citalopram] Intolerance Mood changes, suicidal Metadate Cd [Methyl* Intolerance Makes her very mean Vyvanse [Lisdexamfe* Intolerance Mood changes Red Dye Contraindication-Medical Surgical, Other: See Comments Patient becomes very hyper. No other reactions. Current Medications Current Outpatient Medications on File Prior to Visit Medication Sig ciprofloxacin HCl (CILOXAN) 0.3 % ophthalmic solution Use 1-2 drops inside left lower eyelid(s) every 2 hours while awake for 2 days, then 1-2 drops every 4 hours for next 5 days. ondansetron orally disintegrating (ZOFRAN ODT) 4 mg disintegrating tablet Take 1 tablet by mouth every 6 hours as needed for nausea/vomiting. MULTIVITAMIN ORAL Take by mouth. carbonyl iron 15 mg chew Take 1 tablet by mouth once daily. busPIRone (BUSPAR) 5 mg tablet Take 1 tablet by mouth two times a day as needed. dextroamphetamine-amphetamine (ADDERALL) 5 mg tablet Take 1 tablet by mouth once daily for 30 days. LARISSIA 0.1-20 mg-mcg per tablet Take 1 tablet by mouth once daily. No current facility-administered medications on file prior to visit. Social History Social History Tobacco Use Smoking status: Never Smokeless tobacco: Never Vaping Use Vaping status: Never Used Substance Use Topics Alcohol use: Never Drug use: Never Review of Symptoms REVIEW OF SYSTEMS See HPI, otherwise negative EXAM: BP 120/64 (BP Site: Left Arm, BP Position: Sitting, BP Cuff Size: Large Adult) Pulse 72 Resp 14 Wt 76.6 kg (168 lb 12.8 oz) LMP 03/29/2023 (Exact Date) SpO2 98% BMI 31.14 kg/m? General Appearance: Well appearing, alert, in no acute distress, well-hydrated, well nourished.. Lungs: Lungs clear to auscultation. No wheezing, rhonchi, rales.. Heart: RRR without murmur, gallop, or rubs. No ectopy. Psychiatric: pleasant, cooperative Health Maintenance List Meningococcal B Vaccine(1 of 2 - Standard) Never done Depression Screening Never done Hepatitis C Screening Never done GC (Gonorrhea) Screening (18-24) due on 05/11/2024 Chlamydia Screening (18-24) due on 05/11/2024 Cervical Cancer Screening Never done Influenza Vaccine(1) due on 04/02/2025 HPV Vaccine(1 - 3-dose series) due on 08/11/2025 Covid-19 Vaccine( - 2023- season) due on 08/11/2025 DTaP,Tdap,Td Vaccine(9 - Td or Tdap) due on 03/06/2029 Hepatitis B Vaccine Completed HIV Screening Discontinued Data reviewed ASSESSMENT/PLAN: 1. Irritability - ICD9: 799.22, ICD10: R45.4 (primary diagnosis) - DULOXETINE 20 MG CAPSULE,DELAYED RELEASE - BUSPIRONE 5 MG TABLET 2. Anger - ICD9: 799.29, ICD10: R45.4 - DULOXETINE 20 MG CAPSULE,DELAYED RELEASE - BUSPIRONE 5 MG TABLET 3. MATEO (generalized anxiety disorder) - ICD9: 300.02, ICD10: F41.1 - DULOXETINE 20 MG CAPSULE,DELAYED RELEASE - BUSPIRONE 5 MG TABLET 4. Mood disorder (HCC) - ICD9: 296.90, ICD10: F39 - DULOXETINE 20 MG CAPSULE,DELAYED RELEASE - BUSPIRONE 5 MG TABLET 5. Situational anxiety - ICD9: 300.09, ICD10: F41.8 - DULOXETINE 20 MG CAPSULE,DELAYED RELEASE - BUSPIRONE 5 MG TABLET 6. ADHD (attention deficit hyperactivity disorder), combined type - ICD9: 314.01, ICD10: F90.2 - DULOXETINE 20 MG CAPSULE,DELAYED RELEASE - BUSPIRONE 5 MG TABLET - Gave duloxetine 20mg once daily. Continue with buspirone 5mg daily. Discontinue adderall. Follow-up in 3 months to evaluate response to treatment. Marc Boyer Previous records, office notes, PDMP report PDMP website checked and validated. All prescriptions have been APPROPRIATELY filled. No suspicious activity was identified. 11/24/2024 by Lizzette Tineo CNP. Attending Note I have personally performed a face to face assessment of the patient and have reviewed the VIRA note and I agree. Other additions or changes: As edited Signature: Lizzette Tineo Date: 11/24/2024 Time: 2:36 PM CNOV Observed: 11/24/2024 12:00 PM Status: COMPLETED Source: [facility] LUCRECIA BRICENO ([id number]) 1 F Date Time Provider Department 11/24/24 12:00 PM LIZZETTE TINEO During your visit today, we recorded the following information about you: Pulse Respiration Blood pressure Weight 72/minute 14/minute 120/64 76.6 kg Lizzette Tineo APRN.CNP 11/24/2024 2:36 PM Signed Chief Complaint Patient presents with: Medication Follow-up HPI Lucrecia Briceno is a 19 year old female who presents here today for Above Complaints.. Buspar - states this is helping with stress and does not want to change regimen. Mood overall is okay, states she is angry all the time and easily irritated by any little things. States this has been going on for a couple months and is getting worse. Denies major life stressors that triggered this. Adderall not helping- feels like she is drugged out not able to focus. Wants to stop taking, ADHD is ok, doesn't feel like she needs to change this. Past medical history, appointments, medications, allergies reviewed. Previous Medical History PAST MEDICAL HISTORY Diagnosis Date ADHD (attention deficit hyperactivity disorder) 10/04/2008 Anxiety Previous Surgical History PAST SURGICAL HISTORY Procedure Laterality Date TONSILLECTOMY AND ADENOIDECTOMY <AGE 10 Family History FAMILY HISTORY Problem Relation Age of Onset Hypothyroidism Mother Migraines Mother Anxiety disorder Mother other (pcos) Mother Hypertension Father ADD/ADHD Father Heart Attack Father ADD/ADHD Brother other (eoe) Brother Breast Cancer Maternal Grandmother Anxiety disorder Maternal Grandmother Depression Maternal Grandmother Hypothyroidism Maternal Grandmother Arthritis Maternal Grandmother Hypertension Maternal Grandfather Anxiety disorder Maternal Grandfather Depression Maternal Grandfather Arthritis Maternal Grandfather Breast Cancer Paternal Grandmother No Known Problems Paternal Grandfather Patient Allergies ALLERGIES Allergen Reactions Celexa [Citalopram] Intolerance Mood changes, suicidal Metadate Cd [Methyl* Intolerance Makes her very mean Vyvanse [Lisdexamfe* Intolerance Mood changes Red Dye Contraindication-Medical Surgical, Other: See Comments Patient becomes very hyper. No other reactions. Current Medications Current Outpatient Medications on File Prior to Visit Medication Sig ciprofloxacin HCl (CILOXAN) 0.3 % ophthalmic solution Use 1-2 drops inside left lower eyelid(s) every 2 hours while awake for 2 days, then 1-2 drops every 4 hours for next 5 days. ondansetron orally disintegrating (ZOFRAN ODT) 4 mg disintegrating tablet Take 1 tablet by mouth every 6 hours as needed for nausea/vomiting. MULTIVITAMIN ORAL Take by mouth. carbonyl iron 15 mg chew Take 1 tablet by mouth once daily. busPIRone (BUSPAR) 5 mg tablet Take 1 tablet by mouth two times a day as needed. dextroamphetamine-amphetamine (ADDERALL) 5 mg tablet Take 1 tablet by mouth once daily for 30 days. LARISSIA 0.1-20 mg-mcg per tablet Take 1 tablet by mouth once daily. No current facility-administered medications on file prior to visit. Social History Social History Tobacco Use Smoking status: Never Smokeless tobacco: Never Vaping Use Vaping status: Never Used Substance Use Topics Alcohol use: Never Drug use: Never Review of Symptoms REVIEW OF SYSTEMS See HPI, otherwise negative EXAM: BP 120/64 (BP Site: Left Arm, BP Position: Sitting, BP Cuff Size: Large Adult) Pulse 72 Resp 14 Wt 76.6 kg (168 lb 12.8 oz) LMP 03/29/2023 (Exact Date) SpO2 98% BMI 31.14 kg/m? General Appearance: Well appearing, alert, in no acute distress, well-hydrated, well nourished.. Lungs: Lungs clear to auscultation. No wheezing, rhonchi, rales.. Heart: RRR without murmur, gallop, or rubs. No ectopy. Psychiatric: pleasant, cooperative Health Maintenance List Meningococcal B Vaccine(1 of 2 - Standard) Never done Depression Screening Never done Hepatitis C Screening Never done GC (Gonorrhea) Screening (18-24) due on 05/11/2024 Chlamydia Screening (18-24) due on 05/11/2024 Cervical Cancer Screening Never done Influenza Vaccine(1) due on 04/02/2025 HPV Vaccine(1 - 3-dose series) due on 08/11/2025 Covid-19 Vaccine( - 2023- season) due on 08/11/2025 DTaP,Tdap,Td Vaccine(9 - Td or Tdap) due on 03/06/2029 Hepatitis B Vaccine Completed HIV Screening Discontinued Data reviewed ASSESSMENT/PLAN: 1. Irritability - ICD9: 799.22, ICD10: R45.4 (primary diagnosis) - DULOXETINE 20 MG CAPSULE,DELAYED RELEASE - BUSPIRONE 5 MG TABLET 2. Anger - ICD9: 799.29, ICD10: R45.4 - DULOXETINE 20 MG CAPSULE,DELAYED RELEASE - BUSPIRONE 5 MG TABLET 3. MATEO (generalized anxiety disorder) - ICD9: 300.02, ICD10: F41.1 - DULOXETINE 20 MG CAPSULE,DELAYED RELEASE - BUSPIRONE 5 MG TABLET 4. Mood disorder (HCC) - ICD9: 296.90, ICD10: F39 - DULOXETINE 20 MG CAPSULE,DELAYED RELEASE - BUSPIRONE 5 MG TABLET 5. Situational anxiety - ICD9: 300.09, ICD10: F41.8 - DULOXETINE 20 MG CAPSULE,DELAYED RELEASE - BUSPIRONE 5 MG TABLET 6. ADHD (attention deficit hyperactivity disorder), combined type - ICD9: 314.01, ICD10: F90.2 - DULOXETINE 20 MG CAPSULE,DELAYED RELEASE - BUSPIRONE 5 MG TABLET - Gave duloxetine 20mg once daily. Continue with buspirone 5mg daily. Discontinue adderall. Follow-up in 3 months to evaluate response to treatment. Marc Boyer Previous records, office notes, PDMP report PDMP website checked and validated. All prescriptions have been APPROPRIATELY filled. No suspicious activity was identified. 11/24/2024 by Lizzette Tineo CNP. Attending Note I have personally performed a face to face assessment of the patient and have reviewed the VIRA note and I agree. Other additions or changes: As edited Signature: Lizzette Tineo Date: 11/24/2024 Time: 2:36 PM Allergies As of Date: 11/24/2024 Noted Allergy Reaction CELEXA (CITALOPRAM) 05/18/2022 5 - Intolerance Comments: Mood changes, suicidal METADATE CD (METHYLPHENIDATE) 08/11/2024 5 - Intolerance Comments: Makes her very mean VYVANSE (LISDEXAMFETAMINE) 05/18/2022 5 - Intolerance Comments: Mood changes RED DYE 08/08/2019 15 - Contraindication-Medical Cao*14 - Other: See Comments Comments: Patient becomes very hyper. No other reactions. Date Reviewed: 11/24/2024 Reviewed by: Nunu De La Cruz LPN - Fully Assessed Reason for Visit: Medication Follow-up [270] Primary Visit Diagnosis:Irritability [R45.4] Other Visit Diagnoses:Anger [R45.4] MATEO (generalized anxiety disorder) [F41.1] Mood disorder (HCC) [F39] Situational anxiety [F41.8] ADHD (attention deficit hyperactivity disorder), combined type [F90.2] Order(s):DULoxetine (CYMBALTA) 20 mg capsuleTake 1 capsule by mouth once daily.Disp: 30 capsuleRfl: 2 busPIRone (BUSPAR) 5 mg tabletTake 1 tablet by mouth two times a day as needed.Disp: 60 tabletRfl: 1 Prescriptions as of 11/24/2024 - DULoxetine (CYMBALTA) 20 mg capsule Take 1 capsule by mouth once daily. - busPIRone (BUSPAR) 5 mg tablet Take 1 tablet by mouth two times a day as needed. - ciprofloxacin HCl (CILOXAN) 0.3 % ophthalmic solution Use 1-2 drops inside left lower eyelid(s) every 2 hours while awake for 2 days, then 1-2 drops every 4 hours for next 5 days. - ondansetron orally disintegrating (ZOFRAN ODT) 4 mg disintegrating tablet Take 1 tablet by mouth every 6 hours as needed for nausea/vomiting. - MULTIVITAMIN ORAL Take by mouth. - carbonyl iron 15 mg chew Take 1 tablet by mouth once daily. - LARISSIA 0.1-20 mg-mcg per tablet Take 1 tablet by mouth once daily. Problem List As Of Date 11/24/2024 Noted Resolved MATEO (generalized anxiety disorder) [F41.1] 05/18/2022 ADHD (attention deficit hyperactivity disorder)*05/18/2022 Mood disorder (HCC) [F39] 05/18/2022 Prescriptions ordered this encounter Disp Refills Start End DULOXETINE 20 MG CAPSULE,DELAYED REL* 30 c* 2 11/24/2024 02/22/2025 Route: ORAL Sig: Take 1 capsule by mouth once daily. BUSPIRONE 5 MG TABLET 60 t* 1 11/24/2024 Route: ORAL Sig: Take 1 tablet by mouth two times a day as needed. Medications Discontinued During This Encounter Prescriptions - busPIRone (BUSPAR) 5 mg tablet (Discontinued) Take 1 tablet by mouth two times a day as needed. - dextroamphetamine-amphetamine (ADDERALL) 5 mg tablet (Discontinued) Take 1 tablet by mouth once daily for 30 days. Level of Service: OFFICE/OUTPATIENT ESTABLISHED LOW MDM 20 MIN [73704] Disposition: Return in about 2 months (around 01/22/2025) for medication/mood f/u. Follow-up and Disposition History for Encounter Date Provider Department Center 11/24/2024 [id number] TINEOWS [facility] Encounter Status:Closed by LIZZETTE TINEO on 11/24/24 CNCO Observed: 11/24/2024 12:00 AM Status: COMPLETED Source: [facility] Letter Text PROGRESS Observed: 11/22/2024 12:17 PM Status: COMPLETED Source: [facility] HNO ID: [id number] Author: REMI FUNG PA Service: ? Author Type: Physician Medication Technician Type: Progress Notes Filed: 11/22/2024 12:22 Note Text: This note was created using NoteWriter. Subjective Lucrecia Briceno is a 19 year old female. HPI 19-year-old female presents for vomiting, diarrhea x 1 day. Patient states she got up today and felt she had an upset stomach. She has had multiple episodes of vomiting and diarrhea today. No blood in the stool. No abdominal pain, just reports stomach feels upset and nauseous. She denies any fevers, cough, congestion. No concern for . She has been able to eat and drink today. Patient also complaining of left eye irritation. Symptoms started a few days ago. 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 She does wear contacts and glasses, has not worn her contacts for several days due to irritation of the eye. She has had some drainage from the eye as well. PAST MEDICAL HISTORY Diagnosis Date ADHD (attention deficit hyperactivity disorder) 10/04/2008 Anxiety PAST SURGICAL HISTORY Procedure Laterality Date TONSILLECTOMY AND ADENOIDECTOMY <AGE 10 ALLERGIES Celexa [Citalopram], Metadate Cd [Methylphenidate], Vyvanse [Lisdexamfetamine], and Red Dye MEDICATIONS ondansetron orally disintegrating (ZOFRAN ODT) 4 mg disintegrating tablet Take 1 tablet by mouth every 6 hours as needed for nausea/vomiting. MULTIVITAMIN ORAL Take by mouth. carbonyl iron 15 mg chew Take 1 tablet by mouth once daily. dextroamphetamine-amphetamine (ADDERALL) 5 mg tablet Take 1 tablet by mouth once daily for 30 days. busPIRone (BUSPAR) 5 mg tablet Take 1 tablet by mouth two times a day as needed. LARISSIA 0.1-20 mg-mcg per tablet Take 1 tablet by mouth once daily. ciprofloxacin HCl (CILOXAN) 0.3 % ophthalmic solution Use 1-2 drops inside left lower eyelid(s) every 2 hours while awake for 2 days, then 1-2 drops every 4 hours for next 5 days. FAMILY HISTORY Problem Relation Age of Onset Hypothyroidism Mother Migraines Mother Anxiety disorder Mother other (pcos) Mother Hypertension Father ADD/ADHD Father Heart Attack Father ADD/ADHD Brother other (eoe) Brother Breast Cancer Maternal Grandmother Anxiety disorder Maternal Grandmother Depression Maternal Grandmother Hypothyroidism Maternal Grandmother Arthritis Maternal Grandmother Hypertension Maternal Grandfather Anxiety disorder Maternal Grandfather Depression Maternal Grandfather Arthritis Maternal Grandfather Breast Cancer Paternal Grandmother No Known Problems Paternal Grandfather Social History Tobacco Use Smoking status: Never Smokeless tobacco: Never Vaping Use Vaping status: Never Used Substance Use Topics Alcohol use: Never Drug use: Never Review of Systems Constitutional: Negative for chills and fever. HENT: Negative for congestion, ear pain and sore throat. Eyes: Positive for pain, discharge and itching. Negative for photophobia, redness and visual disturbance. Respiratory: Negative for cough and shortness of breath. Cardiovascular: Negative for chest pain. Gastrointestinal: Positive for diarrhea, nausea and vomiting. Negative for abdominal pain. Objective BP 110/78 Pulse 68 Temp 36.4 ?C (97.5 ?F) (Tympanic) Resp 18 Wt 77.2 kg (170 lb 3.1 oz) LMP 03/29/2023 (Exact Date) SpO2 100% BMI 31.40 kg/m? Physical Exam Vitals and nursing note reviewed. Constitutional: General: She is not in acute distress. Appearance: Normal appearance. She is not toxic-appearing. HENT: Nose: Nose normal. Mouth/Throat: Mouth: Mucous membranes are moist. Eyes: General: Vision grossly intact. Extraocular Movements: Extraocular movements intact. Conjunctiva/sclera: Conjunctivae normal. Pupils: Pupils are equal, round, and reactive to light. Left eye: No corneal abrasion or fluorescein uptake. Comments: No fluorescein uptake on exam. No abrasion. Vision intact. PERRLA. EOMI. No pain with eye movement. Cardiovascular: Rate and Rhythm: Normal rate and regular rhythm. Pulmonary: Effort: Pulmonary effort is normal. Breath sounds: Normal breath sounds. Abdominal: General: Abdomen is flat. Palpations: Abdomen is soft. Tenderness: There is no abdominal tenderness. There is no guarding or rebound. Skin: General: Skin is warm and dry. Neurological: Mental Status: She is alert. Assessment and Plan ASSESSMENT/PLAN: 1. Vomiting and diarrhea - ICD9: 787.03, 787.91, ICD10: R11.10, R19.7 (primary diagnosis) -Suspect viral illness. -Recommend brat diet/bland diet, fluids, rest. 2. Irritation of left eye - ICD9: 379.99, ICD10: H57.89 -No fluorescein uptake on exam. No abrasion. Vision intact. -Exposure to conjunctivitis, patient does wear contacts, has had some irritation of the eye and drainage -Rx for ciprofloxacin drops given. Advised to change out contacts and not wear them x 1 week. Follow-up with eye doctor if symptoms persist - TETRACAINE 0.5 % EYE DROPS - FLUORESCEIN 1 MG EYE STRIPS Diagnosis and treatment plan were discussed and questions were answered to the patient's satisfaction. Pt acknowledged understanding of concepts and follow up plan. Specific signs and symptoms that would indicate the need for higher level of care were discussed in detail warranting prompt ER evaluation. MARKOS Childs CNOV Observed: 11/22/2024 12:15 PM Status: COMPLETED Source: [facility] Office Visit (WSTR) LUCRECIA BRICENO ([id number]) 1 F Date Time Provider Department 11/22/24 12:15 PM REMI FUNG WS During your visit today, we recorded the following information about you: Temperature Pulse Respiration Blood pressure 97.5 degrees 68/minute 18/minute 110/78 Weight 77.2 kg Remi Fung PA 11/22/2024 12:17 PM Signed BRAT DIET (may eat any of the following as tolerated) Bananas Applesauce Lehr Saltine Crackers Animal Crackers Pretzels Oatmeal Unsweetened Dry Cereal (Rice Krispies, Cheerios) Plain Baked or Boiled Potato Plain White Rice Plain Noodles All clear liquid listed below CLEAR LIQUID DIET hour) Broth Jello Popsicles Pedialyte Gatorade NO Milk NO Dairy Products Remi Fung PA 11/22/2024 12:22 PM Signed This note was created using NoteWriter. Subjective Lucrecia Briceno is a 19 year old female. HPI 19-year-old female presents for vomiting, diarrhea x 1 day. Patient states she got up today and felt she had an upset stomach. She has had multiple episodes of vomiting and diarrhea today. No blood in the stool. No abdominal pain, just reports stomach feels upset and nauseous. She denies any fevers, cough, congestion. No concern for . She has been able to eat and drink today. Patient also complaining of left eye irritation. Symptoms started a few days ago. 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 She does wear contacts and glasses, has not worn her contacts for several days due to irritation of the eye. She has had some drainage from the eye as well. PAST MEDICAL HISTORY Diagnosis Date ADHD (attention deficit hyperactivity disorder) 10/04/2008 Anxiety PAST SURGICAL HISTORY Procedure Laterality Date TONSILLECTOMY AND ADENOIDECTOMY <AGE 10 ALLERGIES Celexa [Citalopram], Metadate Cd [Methylphenidate], Vyvanse [Lisdexamfetamine], and Red Dye MEDICATIONS ondansetron orally disintegrating (ZOFRAN ODT) 4 mg disintegrating tablet Take 1 tablet by mouth every 6 hours as needed for nausea/vomiting. MULTIVITAMIN ORAL Take by mouth. carbonyl iron 15 mg chew Take 1 tablet by mouth once daily. dextroamphetamine-amphetamine (ADDERALL) 5 mg tablet Take 1 tablet by mouth once daily for 30 days. busPIRone (BUSPAR) 5 mg tablet Take 1 tablet by mouth two times a day as needed. LARISSIA 0.1-20 mg-mcg per tablet Take 1 tablet by mouth once daily. ciprofloxacin HCl (CILOXAN) 0.3 % ophthalmic solution Use 1-2 drops inside left lower eyelid(s) every 2 hours while awake for 2 days, then 1-2 drops every 4 hours for next 5 days. FAMILY HISTORY Problem Relation Age of Onset Hypothyroidism Mother Migraines Mother Anxiety disorder Mother other (pcos) Mother Hypertension Father ADD/ADHD Father Heart Attack Father ADD/ADHD Brother other (eoe) Brother Breast Cancer Maternal Grandmother Anxiety disorder Maternal Grandmother Depression Maternal Grandmother Hypothyroidism Maternal Grandmother Arthritis Maternal Grandmother Hypertension Maternal Grandfather Anxiety disorder Maternal Grandfather Depression Maternal Grandfather Arthritis Maternal Grandfather Breast Cancer Paternal Grandmother No Known Problems Paternal Grandfather Social History Tobacco Use Smoking status: Never Smokeless tobacco: Never Vaping Use Vaping status: Never Used Substance Use Topics Alcohol use: Never Drug use: Never Review of Systems Constitutional: Negative for chills and fever. HENT: Negative for congestion, ear pain and sore throat. Eyes: Positive for pain, discharge and itching. Negative for photophobia, redness and visual disturbance. Respiratory: Negative for cough and shortness of breath. Cardiovascular: Negative for chest pain. Gastrointestinal: Positive for diarrhea, nausea and vomiting. Negative for abdominal pain. Objective BP 110/78 Pulse 68 Temp 36.4 ?C (97.5 ?F) (Tympanic) Resp 18 Wt 77.2 kg (170 lb 3.1 oz) LMP 03/29/2023 (Exact Date) SpO2 100% BMI 31.40 kg/m? Physical Exam Vitals and nursing note reviewed. Constitutional: General: She is not in acute distress. Appearance: Normal appearance. She is not toxic-appearing. HENT: Nose: Nose normal. Mouth/Throat: Mouth: Mucous membranes are moist. Eyes: General: Vision grossly intact. Extraocular Movements: Extraocular movements intact. Conjunctiva/sclera: Conjunctivae normal. Pupils: Pupils are equal, round, and reactive to light. Left eye: No corneal abrasion or fluorescein uptake. Comments: No fluorescein uptake on exam. No abrasion. Vision intact. PERRLA. EOMI. No pain with eye movement. Cardiovascular: Rate and Rhythm: Normal rate and regular rhythm. Pulmonary: Effort: Pulmonary effort is normal. Breath sounds: Normal breath sounds. Abdominal: General: Abdomen is flat. Palpations: Abdomen is soft. Tenderness: There is no abdominal tenderness. There is no guarding or rebound. Skin: General: Skin is warm and dry. Neurological: Mental Status: She is alert. Assessment and Plan ASSESSMENT/PLAN: 1. Vomiting and diarrhea - ICD9: 787.03, 787.91, ICD10: R11.10, R19.7 (primary diagnosis) -Suspect viral illness. -Recommend brat diet/bland diet, fluids, rest. 2. Irritation of left eye - ICD9: 379.99, ICD10: H57.89 -No fluorescein uptake on exam. No abrasion. Vision intact. -Exposure to conjunctivitis, patient does wear contacts, has had some irritation of the eye and drainage -Rx for ciprofloxacin drops given. Advised to change out contacts and not wear them x 1 week. Follow-up with eye doctor if symptoms persist - TETRACAINE 0.5 % EYE DROPS - FLUORESCEIN 1 MG EYE STRIPS Diagnosis and treatment plan were discussed and questions were answered to the patient's satisfaction. Pt acknowledged understanding of concepts and follow up plan. Specific signs and symptoms that would indicate the need for higher level of care were discussed in detail warranting prompt ER evaluation. MARKOS Childs Allergies As of Date: 11/22/2024 Noted Allergy Reaction CELEXA (CITALOPRAM) 05/18/2022 5 - Intolerance Comments: Mood changes, suicidal METADATE CD (METHYLPHENIDATE) 08/11/2024 5 - Intolerance Comments: Makes her very mean VYVANSE (LISDEXAMFETAMINE) 05/18/2022 5 - Intolerance Comments: Mood changes RED DYE 08/08/2019 15 - Contraindication-Medical Cao*14 - Other: See Comments Comments: Patient becomes very hyper. No other reactions. Date Reviewed: 11/22/2024 Reviewed by: Maria Fernanda Amezcua LPN - Fully Assessed Reason for Visit: Eye Problem [43] Cmt: Left eye irritation x 5 days and stomach pain and vomiting x 3 days Primary Visit Diagnosis:Vomiting and diarrhea [R11.10, R19.7] Other Visit Diagnosis:Irritation of left eye [H57.89] Order(s):ciprofloxacin HCl (CILOXAN) 0.3 % ophthalmic solutionUse 1-2 drops inside left lower eyelid(s) every 2 hours while awake for 2 days, then 1-2 drops every 4 hours for next 5 days.Disp: 5 mLRfl: 0 tetracaine 0.5 % 1 Drop (OPTICAINE)Disp: Rfl: fluorescein 1 mg 1 Strip (FLUORETS)Disp: Rfl: Prescriptions as of 11/22/2024 - ciprofloxacin HCl (CILOXAN) 0.3 % ophthalmic solution Use 1-2 drops inside left lower eyelid(s) every 2 hours while awake for 2 days, then 1-2 drops every 4 hours for next 5 days. - ondansetron orally disintegrating (ZOFRAN ODT) 4 mg disintegrating tablet Take 1 tablet by mouth every 6 hours as needed for nausea/vomiting. - MULTIVITAMIN ORAL Take by mouth. - carbonyl iron 15 mg chew Take 1 tablet by mouth once daily. - dextroamphetamine-amphetamine (ADDERALL) 5 mg tablet Take 1 tablet by mouth once daily for 30 days. - busPIRone (BUSPAR) 5 mg tablet Take 1 tablet by mouth two times a day as needed. - LARISSIA 0.1-20 mg-mcg per tablet Take 1 tablet by mouth once daily. Facility-Administered Medications as of 11/22/2024 - tetracaine 0.5 % 1 Drop (OPTICAINE) - fluorescein 1 mg 1 Strip (FLUORETS) Problem List As Of Date 11/22/2024 Noted Resolved MATEO (generalized anxiety disorder) [F41.1] 05/18/2022 ADHD (attention deficit hyperactivity disorder)*05/18/2022 Mood disorder (HCC) [F39] 05/18/2022 Other instructions from your clinician: BRAT DIET (may eat any of the following as tolerated) Bananas Applesauce Lehr Saltine Crackers Animal Crackers Pretzels Oatmeal Unsweetened Dry Cereal (Rice Krispies, Cheerios) Plain Baked or Boiled Potato Plain White Rice Plain Noodles All clear liquid listed below CLEAR LIQUID DIET hour) Broth Jello Popsicles Pedialyte Gatorade NO Milk NO Dairy Products Prescriptions ordered this encounter Disp Refills Start End CIPROFLOXACIN 0.3 % EYE DROPS 5 mL 0 11/22/2024 11/29/2024 Sig: Use 1-2 drops inside left lower eyelid(s) every 2 hours while awake for 2 days, then 1-2 drops every 4 hours for next 5 days. TETRACAINE 0.5 % EYE DROPS 11/22/2024 11/23/2024 Route: LEFT EYE FLUORESCEIN 1 MG EYE STRIPS 11/22/2024 11/23/2024 Route: LEFT EYE Letter Text Encounter Status:Closed by REMI UFNG on 11/22/24 CNOV Observed: 10/16/2024 10:00 AM Status: COMPLETED Source: [facility] Office Visit (WSTR) LUCRECIA BRICENO ([id number]) 1 F Date Time Provider Department 10/16/24 10:00 AM SALLY MIN UCWSTR During your visit today, we recorded the following information about you: Temperature Pulse Respiration Blood pressure 98.6 degrees 70/minute 16/minute 122/78 Weight 78.9 kg Sally Min APRN.[employer] 10/16/2024 9:36 AM Signed CC: Patient presents with: Cough: Cough, chest congestion, ST, stuffy nose, fever x 3 days HPI: Lucrecia Briceno is a 19 year old female who presents to the office with complaint of chest congestion, head congestion, cough, nonproductive, sore throat, sinus symptoms, and fever for a few days. Symptoms are staying the same. Associated symptoms includes cough. Denies nausea, vomiting , and diarrhea. Treatments tried include nothing so far. with no relief of symptoms. Sick contacts: unknown. History of asthma, frequent episodes of bronchitis, chronic bronchitis, bronchiectasis or COPD: No Smoker: No Seasonal/environmental allergies: No The ROS is otherwise negative. The patient's pmh, medications, allergies, and past visits are reviewed. PHYSICAL EXAM: BP 122/78 Pulse 70 Temp 37 ?C (98.6 ?F) (Tympanic) Resp 16 Wt 78.9 kg (173 lb 15.1 oz) LMP 03/29/2023 (Exact Date) SpO2 98% BMI 32.09 kg/m? General appearance: alert, cooperative, pleasant, in no acute distress Head: Normocephalic Eyes: EOM's intact, conjunctiva pink and moist, no icterus, sclera white, non-injected Ears: Right ear: External ear/canal- Normal, TM - clear with good landmarks. Left ear: External ear/canal- Normal, TM - clear with good landmarks Oropharynx:moist without lesions, No erythema, exudates or tonsillar hypertrophy. Heart: Negative. RRR without obvious murmur, gallop, or rubs. No ectopy. Lungs: clear to auscultation, without rales or wheeze, good air exchange PAST MEDICAL HISTORY Diagnosis Date ADHD (attention deficit hyperactivity disorder) 10/04/2008 Anxiety PAST SURGICAL HISTORY Procedure Laterality Date TONSILLECTOMY AND ADENOIDECTOMY <AGE 10 ALLERGIES Celexa [Citalopram], Metadate Cd [Methylphenidate], Vyvanse [Lisdexamfetamine], and Red Dye MEDICATIONS ondansetron orally disintegrating (ZOFRAN ODT) 4 mg disintegrating tablet Take 1 tablet by mouth every 6 hours as needed for nausea/vomiting. MULTIVITAMIN ORAL Take by mouth. carbonyl iron 15 mg chew Take 1 tablet by mouth once daily. dextroamphetamine-amphetamine (ADDERALL) 5 mg tablet Take 1 tablet by mouth once daily for 30 days. busPIRone (BUSPAR) 5 mg tablet Take 1 tablet by mouth two times a day as needed. LARISSIA 0.1-20 mg-mcg per tablet Take 1 tablet by mouth once daily. benzonatate (TESSALON PERLE) 100 mg capsule Take 1 capsule by mouth three times a day as needed for cough for up to 7 days. budesonide (RHINOCORT AQ) 32 mcg/actuation nasal spray Use 2 Sprays in each nostril once daily for 14 days. Rinse mouth after use. FAMILY HISTORY Problem Relation Age of Onset Hypothyroidism Mother Migraines Mother Anxiety disorder Mother other (pcos) Mother Hypertension Father ADD/ADHD Father Heart Attack Father ADD/ADHD Brother other (eoe) Brother Breast Cancer Maternal Grandmother Anxiety disorder Maternal Grandmother Depression Maternal Grandmother Hypothyroidism Maternal Grandmother Arthritis Maternal Grandmother Hypertension Maternal Grandfather Anxiety disorder Maternal Grandfather Depression Maternal Grandfather Arthritis Maternal Grandfather Breast Cancer Paternal Grandmother No Known Problems Paternal Grandfather Social History Tobacco Use Smoking status: Never Smokeless tobacco: Never Vaping Use Vaping status: Never Used Substance Use Topics Alcohol use: Never Drug use: Never ASSESSMENT/PLAN: 1. Head congestion - ICD9: 478.19, ICD10: R09.81 (primary diagnosis) - BUDESONIDE 32 MCG/ACTUATION NASAL SPRAY 2. Acute cough - ICD9: 786.2, ICD10: R05.1 - BENZONATATE 100 MG CAPSULE Initially wanted an RSV test done only. Did let her know that we cannot separate out the RSV test but it is just a viral cold and should run its course in someone of her age and health. Patient was agreeable to not get the test. Prescription instructions reviewed with patient as applicable. Potential red flag symptoms discussed with the patient. Reviewed appropriate action plan to take if red flag symptoms occur. Patient agreeable to treatment plan. Sally Min APRN.[employer] Allergies As of Date: 10/16/2024 Noted Allergy Reaction CELEXA (CITALOPRAM) 05/18/2022 5 - Intolerance Comments: Mood changes, suicidal METADATE CD (METHYLPHENIDATE) 08/11/2024 5 - Intolerance Comments: Makes her very mean VYVANSE (LISDEXAMFETAMINE) 05/18/2022 5 - Intolerance Comments: Mood changes RED DYE 08/08/2019 15 - Contraindication-Medical Cao*14 - Other: See Comments Comments: Patient becomes very hyper. No other reactions. Date Reviewed: 09/19/2024 Reviewed by: Maria Fernanda Amezcua LPN - Fully Assessed Reason for Visit: Cough [28] Cmt: Cough, chest congestion, ST, stuffy nose, fever x 3 days Primary Visit Diagnosis:Head congestion [R09.81] Other Visit Diagnosis:Acute cough [R05.1] Order(s):benzonatate (TESSALON PERLE) 100 mg capsuleTake 1 capsule by mouth three times a day as needed for cough for up to 7 days.Disp: 21 capsuleRfl: 0 budesonide (RHINOCORT AQ) 32 mcg/actuation nasal sprayUse 2 Sprays in each nostril once daily for 14 days. Rinse mouth after use.Disp: 8.43 mLRfl: 0 Prescriptions as of 10/16/2024 - benzonatate (TESSALON PERLE) 100 mg capsule Take 1 capsule by mouth three times a day as needed for cough for up to 7 days. - budesonide (RHINOCORT AQ) 32 mcg/actuation nasal spray Use 2 Sprays in each nostril once daily for 14 days. Rinse mouth after use. - ondansetron orally disintegrating (ZOFRAN ODT) 4 mg disintegrating tablet Take 1 tablet by mouth every 6 hours as needed for nausea/vomiting. - MULTIVITAMIN ORAL Take by mouth. - carbonyl iron 15 mg chew Take 1 tablet by mouth once daily. - dextroamphetamine-amphetamine (ADDERALL) 5 mg tablet Take 1 tablet by mouth once daily for 30 days. - busPIRone (BUSPAR) 5 mg tablet Take 1 tablet by mouth two times a day as needed. - LARISSIA 0.1-20 mg-mcg per tablet Take 1 tablet by mouth once daily. Problem List As Of Date 10/16/2024 Noted Resolved MATEO (generalized anxiety disorder) [F41.1] 05/18/2022 ADHD (attention deficit hyperactivity disorder)*05/18/2022 Mood disorder (HCC) [F39] 05/18/2022 Prescriptions ordered this encounter Disp Refills Start End BENZONATATE 100 MG CAPSULE 21 c* 0 10/16/2024 10/23/2024 Route: ORAL Sig: Take 1 capsule by mouth three times a day as needed for cough for up to 7 days. BUDESONIDE 32 MCG/ACTUATION NASAL SP* 8.43* 0 10/16/2024 10/30/2024 Route: EACH NOSTRIL Sig: Use 2 Sprays in each nostril once daily for 14 days. Rinse mouth after use. Letter Text Encounter Status:Closed by SALLY MIN on 10/16/24 PROGRESS Observed: 10/16/2024 9:21 AM Status: COMPLETED Source: [facility] HNO ID: [id number] Author: SALLY MIN APRN.[employer] Service: ? Author Type: Nurse Practitioner Type: Progress Notes Filed: 10/16/2024 09:36 Note Text: CC: Patient presents with: Cough: Cough, chest congestion, ST, stuffy nose, fever x 3 days HPI: Lucrecia Briceno is a 19 year old female who presents to the office with complaint of chest congestion, head congestion, cough, nonproductive, sore throat, sinus symptoms, and fever for a few days. Symptoms are staying the same. Associated symptoms includes cough. Denies nausea, vomiting , and diarrhea. Treatments tried include nothing so far. with no relief of symptoms. Sick contacts: unknown. History of asthma, frequent episodes of bronchitis, chronic bronchitis, bronchiectasis or COPD: No Smoker: No Seasonal/environmental allergies: No The ROS is otherwise negative. The patient's pmh, medications, allergies, and past visits are reviewed. PHYSICAL EXAM: BP 122/78 Pulse 70 Temp 37 ?C (98.6 ?F) (Tympanic) Resp 16 Wt 78.9 kg (173 lb 15.1 oz) LMP 03/29/2023 (Exact Date) SpO2 98% BMI 32.09 kg/m? General appearance: alert, cooperative, pleasant, in no acute distress Head: Normocephalic Eyes: EOM's intact, conjunctiva pink and moist, no icterus, sclera white, non-injected Ears: Right ear: External ear/canal- Normal, TM - clear with good landmarks. Left ear: External ear/canal- Normal, TM - clear with good landmarks Oropharynx:moist without lesions, No erythema, exudates or tonsillar hypertrophy. Heart: Negative. RRR without obvious murmur, gallop, or rubs. No ectopy. Lungs: clear to auscultation, without rales or wheeze, good air exchange PAST MEDICAL HISTORY Diagnosis Date ADHD (attention deficit hyperactivity disorder) 10/04/2008 Anxiety PAST SURGICAL HISTORY Procedure Laterality Date TONSILLECTOMY AND ADENOIDECTOMY <AGE 10 ALLERGIES Celexa [Citalopram], Metadate Cd [Methylphenidate], Vyvanse [Lisdexamfetamine], and Red Dye MEDICATIONS ondansetron orally disintegrating (ZOFRAN ODT) 4 mg disintegrating tablet Take 1 tablet by mouth every 6 hours as needed for nausea/vomiting. MULTIVITAMIN ORAL Take by mouth. carbonyl iron 15 mg chew Take 1 tablet by mouth once daily. dextroamphetamine-amphetamine (ADDERALL) 5 mg tablet Take 1 tablet by mouth once daily for 30 days. busPIRone (BUSPAR) 5 mg tablet Take 1 tablet by mouth two times a day as needed. LARISSIA 0.1-20 mg-mcg per tablet Take 1 tablet by mouth once daily. benzonatate (TESSALON PERLE) 100 mg capsule Take 1 capsule by mouth three times a day as needed for cough for up to 7 days. budesonide (RHINOCORT AQ) 32 mcg/actuation nasal spray Use 2 Sprays in each nostril once daily for 14 days. Rinse mouth after use. FAMILY HISTORY Problem Relation Age of Onset Hypothyroidism Mother Migraines Mother Anxiety disorder Mother other (pcos) Mother Hypertension Father ADD/ADHD Father Heart Attack Father ADD/ADHD Brother other (eoe) Brother Breast Cancer Maternal Grandmother Anxiety disorder Maternal Grandmother Depression Maternal Grandmother Hypothyroidism Maternal Grandmother Arthritis Maternal Grandmother Hypertension Maternal Grandfather Anxiety disorder Maternal Grandfather Depression Maternal Grandfather Arthritis Maternal Grandfather Breast Cancer Paternal Grandmother No Known Problems Paternal Grandfather Social History Tobacco Use Smoking status: Never Smokeless tobacco: Never Vaping Use Vaping status: Never Used Substance Use Topics Alcohol use: Never Drug use: Never ASSESSMENT/PLAN: 1. Head congestion - ICD9: 478.19, ICD10: R09.81 (primary diagnosis) - BUDESONIDE 32 MCG/ACTUATION NASAL SPRAY 2. Acute cough - ICD9: 786.2, ICD10: R05.1 - BENZONATATE 100 MG CAPSULE Initially wanted an RSV test done only. Did let her know that we cannot separate out the RSV test but it is just a viral cold and should run its course in someone of her age and health. Patient was agreeable to not get the test. Prescription instructions reviewed with patient as applicable. Potential red flag symptoms discussed with the patient. Reviewed appropriate action plan to take if red flag symptoms occur. Patient agreeable to treatment plan. Sally Min APRN.[employer] PROGRESS Observed: 09/19/2024 1:17 PM Status: COMPLETED Source: [facility]NO ID: [id number] Author: LAURIE BRUCE PA-C Service: ? Author Type: Physician Medication Technician Type: Progress Notes Filed: 09/19/2024 13:21 Note Text: This note was created using [employer]. Subjective Lucrecia Briceno is a 18 year old female. HPI Presents with a chief complaint of diarrhea over the past day. She states she needed a note to return to work tomorrow so that is why she came in. She took prune juice as she was having some constipation and that caused her stools to be loose. She has had a headache over the past day. No fever. No cough. No congestion. She did eat out 3 days ago no blood in stool. No abdominal pain or back pain. No urinary complaints. Last menstrual cycle was 2 days ago. Denies chance of . Review of Systems Constitutional: Negative. HENT: Negative. Respiratory: Negative. Cardiovascular: Negative. Gastrointestinal: Positive for diarrhea. Genitourinary: Negative. Musculoskeletal: Negative. Neurological: Positive for headaches. All other systems reviewed and are negative. PAST MEDICAL HISTORY Diagnosis Date ADHD (attention deficit hyperactivity disorder) 10/04/2008 Anxiety Current Outpatient Medications Medication Sig Dispense Refill ondansetron orally disintegrating (ZOFRAN ODT) 4 mg disintegrating tablet Take 1 tablet by mouth every 6 hours as needed for nausea/vomiting. 15 tablet 0 MULTIVITAMIN ORAL Take by mouth. carbonyl iron 15 mg chew Take 1 tablet by mouth once daily. 60 tablet 11 dextroamphetamine-amphetamine (ADDERALL) 5 mg tablet Take 1 tablet by mouth once daily for 30 days. 30 tablet 0 busPIRone (BUSPAR) 5 mg tablet Take 1 tablet by mouth two times a day as needed. 60 tablet 1 LARISSIA 0.1-20 mg-mcg per tablet Take 1 tablet by mouth once daily. 28 tablet 2 No current facility-administered medications for this visit. PAST SURGICAL HISTORY Procedure Laterality Date TONSILLECTOMY AND ADENOIDECTOMY <AGE 10 FAMILY HISTORY Problem Relation Age of Onset Hypothyroidism Mother Migraines Mother Anxiety disorder Mother other (pcos) Mother Hypertension Father ADD/ADHD Father Heart Attack Father ADD/ADHD Brother other (eoe) Brother Breast Cancer Maternal Grandmother Anxiety disorder Maternal Grandmother Depression Maternal Grandmother Hypothyroidism Maternal Grandmother Arthritis Maternal Grandmother Hypertension Maternal Grandfather Anxiety disorder Maternal Grandfather Depression Maternal Grandfather Arthritis Maternal Grandfather Breast Cancer Paternal Grandmother No Known Problems Paternal Grandfather Social History Tobacco Use Smoking status: Never Smokeless tobacco: Never Vaping Use Vaping status: Never Used Substance Use Topics Alcohol use: Never Drug use: Never Objective BP 118/80 Pulse 84 Temp 36.4 ?C (97.6 ?F) (Tympanic) Resp 18 Wt 76.3 kg (168 lb 3.4 oz) LMP 03/29/2023 (Exact Date) SpO2 99% BMI 31.03 kg/m? Physical Exam Vitals reviewed. Constitutional: Appearance: Normal appearance. HENT: Head: Normocephalic and atraumatic. Right Ear: Tympanic membrane, ear canal and external ear normal. Left Ear: Tympanic membrane, ear canal and external ear normal. Nose: Nose normal. Mouth/Throat: Mouth: Mucous membranes are moist. Pharynx: Oropharynx is clear. Cardiovascular: Rate and Rhythm: Normal rate and regular rhythm. Heart sounds: Normal heart sounds. Pulmonary: Effort: Pulmonary effort is normal. Breath sounds: Normal breath sounds. Abdominal: General: Abdomen is flat. Bowel sounds are normal. There is no distension. Palpations: Abdomen is soft. Tenderness: There is no abdominal tenderness. There is no guarding or rebound. Skin: General: Skin is warm and dry. Neurological: General: No focal deficit present. Mental Status: She is alert and oriented to person, place, and time. Assessment and Plan ASSESSMENT/PLAN: 1. Diarrhea, unspecified type - ICD9: 787.91, ICD10: R19.7 Patient had taken some prune juice for constipation and now having diarrhea. Provided work note. Discussed if diarrhea persist past 5 to 7 days, has blood in stool, abdominal pain, fever needs seen again. Laurie Bruce PA-C CNOV Observed: 09/19/2024 11:30 AM Status: COMPLETED Source: [facility] Office Visit (WSTR) LUCRECIA BRICENO ([id number]) 1 F Date Time Provider Department 09/19/24 11:30 AM LAURIE BRUCE WSTR During your visit today, we recorded the following information about you: Temperature Pulse Respiration Blood pressure 97.6 degrees 84/minute 18/minute 118/80 Weight 76.3 kg Laurie Bruce PA-C 09/19/2024 1:21 PM Signed This note was created using [employer]. Subjective Lucrecia Briceno is a 18 year old female. HPI Presents with a chief complaint of diarrhea over the past day. She states she needed a note to return to work tomorrow so that is why she came in. She took prune juice as she was having some constipation and that caused her stools to be loose. She has had a headache over the past day. No fever. No cough. No congestion. She did eat out 3 days ago no blood in stool. No abdominal pain or back pain. No urinary complaints. Last menstrual cycle was 2 days ago. Denies chance of . Review of Systems Constitutional: Negative. HENT: Negative. Respiratory: Negative. Cardiovascular: Negative. Gastrointestinal: Positive for diarrhea. Genitourinary: Negative. Musculoskeletal: Negative. Neurological: Positive for headaches. All other systems reviewed and are negative. PAST MEDICAL HISTORY Diagnosis Date ADHD (attention deficit hyperactivity disorder) 10/04/2008 Anxiety Current Outpatient Medications Medication Sig Dispense Refill ondansetron orally disintegrating (ZOFRAN ODT) 4 mg disintegrating tablet Take 1 tablet by mouth every 6 hours as needed for nausea/vomiting. 15 tablet 0 MULTIVITAMIN ORAL Take by mouth. carbonyl iron 15 mg chew Take 1 tablet by mouth once daily. 60 tablet 11 dextroamphetamine-amphetamine (ADDERALL) 5 mg tablet Take 1 tablet by mouth once daily for 30 days. 30 tablet 0 busPIRone (BUSPAR) 5 mg tablet Take 1 tablet by mouth two times a day as needed. 60 tablet 1 LARISSIA 0.1-20 mg-mcg per tablet Take 1 tablet by mouth once daily. 28 tablet 2 No current facility-administered medications for this visit. PAST SURGICAL HISTORY Procedure Laterality Date TONSILLECTOMY AND ADENOIDECTOMY <AGE 10 FAMILY HISTORY Problem Relation Age of Onset Hypothyroidism Mother Migraines Mother Anxiety disorder Mother other (pcos) Mother Hypertension Father ADD/ADHD Father Heart Attack Father ADD/ADHD Brother other (eoe) Brother Breast Cancer Maternal Grandmother Anxiety disorder Maternal Grandmother Depression Maternal Grandmother Hypothyroidism Maternal Grandmother Arthritis Maternal Grandmother Hypertension Maternal Grandfather Anxiety disorder Maternal Grandfather Depression Maternal Grandfather Arthritis Maternal Grandfather Breast Cancer Paternal Grandmother No Known Problems Paternal Grandfather Social History Tobacco Use Smoking status: Never Smokeless tobacco: Never Vaping Use Vaping status: Never Used Substance Use Topics Alcohol use: Never Drug use: Never Objective BP 118/80 Pulse 84 Temp 36.4 ?C (97.6 ?F) (Tympanic) Resp 18 Wt 76.3 kg (168 lb 3.4 oz) LMP 03/29/2023 (Exact Date) SpO2 99% BMI 31.03 kg/m? Physical Exam Vitals reviewed. Constitutional: Appearance: Normal appearance. HENT: Head: Normocephalic and atraumatic. Right Ear: Tympanic membrane, ear canal and external ear normal. Left Ear: Tympanic membrane, ear canal and external ear normal. Nose: Nose normal. Mouth/Throat: Mouth: Mucous membranes are moist. Pharynx: Oropharynx is clear. Cardiovascular: Rate and Rhythm: Normal rate and regular rhythm. Heart sounds: Normal heart sounds. Pulmonary: Effort: Pulmonary effort is normal. Breath sounds: Normal breath sounds. Abdominal: General: Abdomen is flat. Bowel sounds are normal. There is no distension. Palpations: Abdomen is soft. Tenderness: There is no abdominal tenderness. There is no guarding or rebound. Skin: General: Skin is warm and dry. Neurological: General: No focal deficit present. Mental Status: She is alert and oriented to person, place, and time. Assessment and Plan ASSESSMENT/PLAN: 1. Diarrhea, unspecified type - ICD9: 787.91, ICD10: R19.7 Patient had taken some prune juice for constipation and now having diarrhea. Provided work note. Discussed if diarrhea persist past 5 to 7 days, has blood in stool, abdominal pain, fever needs seen again. Laurie Bruce PA-C Allergies As of Date: 09/19/2024 Noted Allergy Reaction CELEXA (CITALOPRAM) 05/18/2022 5 - Intolerance Comments: Mood changes, suicidal METADATE CD (METHYLPHENIDATE) 08/11/2024 5 - Intolerance Comments: Makes her very mean VYVANSE (LISDEXAMFETAMINE) 05/18/2022 5 - Intolerance Comments: Mood changes RED DYE 08/08/2019 15 - Contraindication-Medical Cao*14 - Other: See Comments Comments: Patient becomes very hyper. No other reactions. Date Reviewed: 09/19/2024 Reviewed by: Maria Fernanda Amezcua LPN - Fully Assessed Reason for Visit: Diarrhea [35] Cmt: Diarrhea and MCKENZIE x 2 days Primary Visit Diagnosis:Diarrhea, unspecified type [R19.7] Prescriptions as of 09/19/2024 - ondansetron orally disintegrating (ZOFRAN ODT) 4 mg disintegrating tablet Take 1 tablet by mouth every 6 hours as needed for nausea/vomiting. - MULTIVITAMIN ORAL Take by mouth. - carbonyl iron 15 mg chew Take 1 tablet by mouth once daily. - dextroamphetamine-amphetamine (ADDERALL) 5 mg tablet Take 1 tablet by mouth once daily for 30 days. - busPIRone (BUSPAR) 5 mg tablet Take 1 tablet by mouth two times a day as needed. - LARISSIA 0.1-20 mg-mcg per tablet Take 1 tablet by mouth once daily. Problem List As Of Date 09/19/2024 Noted Resolved MATEO (generalized anxiety disorder) [F41.1] 05/18/2022 ADHD (attention deficit hyperactivity disorder)*05/18/2022 Mood disorder (HCC) [F39] 05/18/2022 Letter Text Encounter Status:Closed by LAURIE BRUCE on 09/19/24 PROGRESS Observed: 09/05/2024 3:28 PM Status: COMPLETED [id number] Author: NELLY REDD APRN.[employer] Service: ? Author Type: Nurse Practitioner Type: Progress Notes Filed: 09/05/2024 15:30 Note Text: Subjective HPI HPI Lucrecia Briceno is a 18 year old female who presents today for CC of nausea, vomiting, abdominal pain when vomits not now. This started today. Has tried nothing for relief. Symptoms are worsened by nothing. Risk factors sick exposures at work. Denies possibility of being . Denies fever, diarrhea. Laser void 1 hour ago. Denies cp, dizziness, weakness. .Patient presents with: Nausea AND Vomiting: abdominal pain x 9am PAST MEDICAL HISTORY Diagnosis Date ADHD (attention deficit hyperactivity disorder) 10/04/2008 Anxiety PAST SURGICAL HISTORY Procedure Laterality Date TONSILLECTOMY AND ADENOIDECTOMY <AGE 10 ALLERGIES Celexa [Citalopram], Metadate Cd [Methylphenidate], Vyvanse [Lisdexamfetamine], and Red Dye MEDICATIONS MULTIVITAMIN ORAL Take by mouth. carbonyl iron 15 mg chew Take 1 tablet by mouth once daily. dextroamphetamine-amphetamine (ADDERALL) 5 mg tablet Take 1 tablet by mouth once daily for 30 days. busPIRone (BUSPAR) 5 mg tablet Take 1 tablet by mouth two times a day as needed. LARISSIA 0.1-20 mg-mcg per tablet Take 1 tablet by mouth once daily. ondansetron orally disintegrating (ZOFRAN ODT) 4 mg disintegrating tablet Take 1 tablet by mouth every 6 hours as needed for nausea/vomiting. FAMILY HISTORY Problem Relation Age of Onset Hypothyroidism Mother Migraines Mother Anxiety disorder Mother other (pcos) Mother Hypertension Father ADD/ADHD Father Heart Attack Father ADD/ADHD Brother other (eoe) Brother Breast Cancer Maternal Grandmother Anxiety disorder Maternal Grandmother Depression Maternal Grandmother Hypothyroidism Maternal Grandmother Arthritis Maternal Grandmother Hypertension Maternal Grandfather Anxiety disorder Maternal Grandfather Depression Maternal Grandfather Arthritis Maternal Grandfather Breast Cancer Paternal Grandmother No Known Problems Paternal Grandfather Social History Tobacco Use Smoking status: Never Smokeless tobacco: Never Vaping Use Vaping status: Never Used Substance Use Topics Alcohol use: Never Drug use: Never Review of Systems Constitutional: Negative for chills, fever and weight loss. Respiratory: Negative for cough, shortness of breath and wheezing. Cardiovascular: Negative for chest pain and palpitations. Gastrointestinal: Positive for nausea and vomiting. Negative for abdominal pain, constipation, diarrhea and heartburn. Genitourinary: Negative for dysuria, frequency and urgency. Objective Blood pressure 122/72, pulse 100, temperature 36.9 ?C (98.4 ?F), resp. rate 16, weight 78.8 kg (173 lb 11.6 oz), last menstrual period 03/29/2023, SpO2 97%. Physical Exam Constitutional: General: She is not in acute distress. Appearance: Normal appearance. She is not toxic-appearing. Cardiovascular: Rate and Rhythm: Normal rate and regular rhythm. Heart sounds: Normal heart sounds. Pulmonary: Effort: Pulmonary effort is normal. Breath sounds: Normal breath sounds. Abdominal: General: Bowel sounds are normal. Palpations: Abdomen is soft. Tenderness: There is no abdominal tenderness. Skin: General: Skin is warm and dry. ASSESSMENT/PLAN: 1. Nausea and vomiting, unspecified vomiting type - ICD9: 787.01, ICD10: R11.2 -Discussed gentle rehydration -BRAT Diet (Bananas, Rice, Apple Sauce, Lehr) -If no better in 3-4 days follow up back in clinic or with primary care provider -Follow up in the ER with signs of dehydration, increasing abdominal pain, high fever, or blood in vomit or stool. - ONDANSETRON 4 MG DISINTEGRATING TABLET Nelly Redd APRN.VENUS CNOV Observed: 09/05/2024 3:15 PM Status: COMPLETED Source: [facility] Office Visit (WSTR) LUCRECIA BRICENO ([id number]) 1 F Date Time Provider Department 09/05/24 3:15 PM NELLY REDD UC[facility]STR During your visit today, we recorded the following information about you: Temperature Pulse Respiration Blood pressure 98.4 degrees 100/minute 16/minute 122/72 Weight 78.8 kg Nelly Redd APRN.CNP 09/05/2024 3:30 PM Signed Subjective HPI HPI Lucrecia Briceno is a 18 year old female who presents today for CC of nausea, vomiting, abdominal pain when vomits not now. This started today. Has tried nothing for relief. Symptoms are worsened by nothing. Risk factors sick exposures at work. Denies possibility of being . Denies fever, diarrhea. Laser void 1 hour ago. Denies cp, dizziness, weakness. .Patient presents with: Nausea AND Vomiting: abdominal pain x 9am PAST MEDICAL HISTORY Diagnosis Date ADHD (attention deficit hyperactivity disorder) 10/04/2008 Anxiety PAST SURGICAL HISTORY Procedure Laterality Date TONSILLECTOMY AND ADENOIDECTOMY <AGE 10 ALLERGIES Celexa [Citalopram], Metadate Cd [Methylphenidate], Vyvanse [Lisdexamfetamine], and Red Dye MEDICATIONS MULTIVITAMIN ORAL Take by mouth. carbonyl iron 15 mg chew Take 1 tablet by mouth once daily. dextroamphetamine-amphetamine (ADDERALL) 5 mg tablet Take 1 tablet by mouth once daily for 30 days. busPIRone (BUSPAR) 5 mg tablet Take 1 tablet by mouth two times a day as needed. LARISSIA 0.1-20 mg-mcg per tablet Take 1 tablet by mouth once daily. ondansetron orally disintegrating (ZOFRAN ODT) 4 mg disintegrating tablet Take 1 tablet by mouth every 6 hours as needed for nausea/vomiting. FAMILY HISTORY Problem Relation Age of Onset Hypothyroidism Mother Migraines Mother Anxiety disorder Mother other (pcos) Mother Hypertension Father ADD/ADHD Father Heart Attack Father ADD/ADHD Brother other (eoe) Brother Breast Cancer Maternal Grandmother Anxiety disorder Maternal Grandmother Depression Maternal Grandmother Hypothyroidism Maternal Grandmother Arthritis Maternal Grandmother Hypertension Maternal Grandfather Anxiety disorder Maternal Grandfather Depression Maternal Grandfather Arthritis Maternal Grandfather Breast Cancer Paternal Grandmother No Known Problems Paternal Grandfather Social History Tobacco Use Smoking status: Never Smokeless tobacco: Never Vaping Use Vaping status: Never Used Substance Use Topics Alcohol use: Never Drug use: Never Review of Systems Constitutional: Negative for chills, fever and weight loss. Respiratory: Negative for cough, shortness of breath and wheezing. Cardiovascular: Negative for chest pain and palpitations. Gastrointestinal: Positive for nausea and vomiting. Negative for abdominal pain, constipation, diarrhea and heartburn. Genitourinary: Negative for dysuria, frequency and urgency. Objective Blood pressure 122/72, pulse 100, temperature 36.9 ?C (98.4 ?F), resp. rate 16, weight 78.8 kg (173 lb 11.6 oz), last menstrual period 03/29/2023, SpO2 97%. Physical Exam Constitutional: General: She is not in acute distress. Appearance: Normal appearance. She is not toxic-appearing. Cardiovascular: Rate and Rhythm: Normal rate and regular rhythm. Heart sounds: Normal heart sounds. Pulmonary: Effort: Pulmonary effort is normal. Breath sounds: Normal breath sounds. Abdominal: General: Bowel sounds are normal. Palpations: Abdomen is soft. Tenderness: There is no abdominal tenderness. Skin: General: Skin is warm and dry. ASSESSMENT/PLAN: 1. Nausea and vomiting, unspecified vomiting type - ICD9: 787.01, ICD10: R11.2 -Discussed gentle rehydration -BRAT Diet (Bananas, Rice, Apple Sauce, Lehr) -If no better in 3-4 days follow up back in clinic or with primary care provider -Follow up in the ER with signs of dehydration, increasing abdominal pain, high fever, or blood in vomit or stool. - ONDANSETRON 4 MG DISINTEGRATING TABLET Nelly Redd APRN.[employer] Allergies As of Date: 09/05/2024 Noted Allergy Reaction CELEXA (CITALOPRAM) 05/18/2022 5 - Intolerance Comments: Mood changes, suicidal METADATE CD (METHYLPHENIDATE) 08/11/2024 5 - Intolerance Comments: Makes her very mean VYVANSE (LISDEXAMFETAMINE) 05/18/2022 5 - Intolerance Comments: Mood changes RED DYE 08/08/2019 15 - Contraindication-Medical Cao*14 - Other: See Comments Comments: Patient becomes very hyper. No other reactions. Date Reviewed: 09/05/2024 Reviewed by: Delmis Mejia MA - Fully Assessed Reason for Visit: Nausea AND Vomiting [237] Cmt: abdominal pain x 9am Primary Visit Diagnosis:Nausea and vomiting, unspecified vomiting type [R11.2] Order(s):ondansetron orally disintegrating (ZOFRAN ODT) 4 mg disintegrating tabletTake 1 tablet by mouth every 6 hours as needed for nausea/vomiting.Disp: 15 tabletRfl: 0 Prescriptions as of 09/05/2024 - ondansetron orally disintegrating (ZOFRAN ODT) 4 mg disintegrating tablet Take 1 tablet by mouth every 6 hours as needed for nausea/vomiting. - MULTIVITAMIN ORAL Take by mouth. - carbonyl iron 15 mg chew Take 1 tablet by mouth once daily. - dextroamphetamine-amphetamine (ADDERALL) 5 mg tablet Take 1 tablet by mouth once daily for 30 days. - busPIRone (BUSPAR) 5 mg tablet Take 1 tablet by mouth two times a day as needed. - LARISSIA 0.1-20 mg-mcg per tablet Take 1 tablet by mouth once daily. Problem List As Of Date 09/05/2024 Noted Resolved MATEO (generalized anxiety disorder) [F41.1] 05/18/2022 ADHD (attention deficit hyperactivity disorder)*05/18/2022 Mood disorder (HCC) [F39] 05/18/2022 Prescriptions ordered this encounter Disp Refills Start End ONDANSETRON 4 MG DISINTEGRATING TABL* 15 t* 0 09/05/2024 Route: ORAL Sig: Take 1 tablet by mouth every 6 hours as needed for nausea/vomiting. Letter Text Encounter Status:Closed by NELLY REDD on 09/05/24 PROGRESS Observed: 08/22/2024 9:12 AM Status: COMPLETED Source: [facility] ID: [id number] Author: REMI FUNG PA Service: ? Author Type: Physician Medication Technician Type: Progress Notes Filed: 08/22/2024 09:19 Note Text: This note was created using [employer]. Elan Briceno is a 18 year old female. HPI 18-year-old female presents for vomiting, congestion, fever. Patient states she started getting nasal congestion 2 days ago. She states that she has had vomiting 2 times since last night. No diarrhea. No abdominal pain. She states that she had a fever in the middle of the night with sweating and this morning her temp was 100 ?F. She did take Tylenol. She has not really had a cough or sore throat. 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 She states that she is taken ibuprofen and Lindsay [id number] which did help somewhat with her symptoms. She was able to eat and drink today. No concern for . No other complaint. PAST MEDICAL HISTORY Diagnosis Date ADHD (attention deficit hyperactivity disorder) 10/04/2008 Anxiety PAST SURGICAL HISTORY Procedure Laterality Date TONSILLECTOMY AND ADENOIDECTOMY <AGE 10 ALLERGIES Celexa [Citalopram], Metadate Cd [Methylphenidate], Vyvanse [Lisdexamfetamine], and Red Dye MEDICATIONS MULTIVITAMIN ORAL Take by mouth. carbonyl iron 15 mg chew Take 1 tablet by mouth once daily. dextroamphetamine-amphetamine (ADDERALL) 5 mg tablet Take 1 tablet by mouth once daily for 30 days. busPIRone (BUSPAR) 5 mg tablet Take 1 tablet by mouth two times a day as needed. LARISSIA 0.1-20 mg-mcg per tablet Take 1 tablet by mouth once daily. FAMILY HISTORY Problem Relation Age of Onset Hypothyroidism Mother Migraines Mother Anxiety disorder Mother other (pcos) Mother Hypertension Father ADD/ADHD Father Heart Attack Father ADD/ADHD Brother other (eoe) Brother Breast Cancer Maternal Grandmother Anxiety disorder Maternal Grandmother Depression Maternal Grandmother Hypothyroidism Maternal Grandmother Arthritis Maternal Grandmother Hypertension Maternal Grandfather Anxiety disorder Maternal Grandfather Depression Maternal Grandfather Arthritis Maternal Grandfather Breast Cancer Paternal Grandmother No Known Problems Paternal Grandfather Social History Tobacco Use Smoking status: Never Smokeless tobacco: Never Vaping Use Vaping status: Never Used Substance Use Topics Alcohol use: Never Drug use: Never Review of Systems Constitutional: Positive for chills and fever. HENT: Positive for congestion. Negative for ear pain and sore throat. Respiratory: Negative for cough and shortness of breath. Cardiovascular: Negative for chest pain. Gastrointestinal: Positive for vomiting. Negative for diarrhea. Objective BP 126/80 Pulse 78 Temp 36.7 ?C (98.1 ?F) Resp 16 Wt 79.4 kg (175 lb 0.7 oz) LMP 03/29/2023 (Exact Date) SpO2 100% BMI 32.29 kg/m? Physical Exam Vitals and nursing note reviewed. Constitutional: General: She is not in acute distress. Appearance: Normal appearance. She is not toxic-appearing. HENT: Right Ear: Tympanic membrane and ear canal normal. Left Ear: Tympanic membrane and ear canal normal. Nose: Congestion present. Mouth/Throat: Mouth: Mucous membranes are moist. Pharynx: No oropharyngeal exudate. Eyes: Conjunctiva/sclera: Conjunctivae normal. Cardiovascular: Rate and Rhythm: Normal rate and regular rhythm. Pulmonary: Effort: Pulmonary effort is normal. Breath sounds: Normal breath sounds. Abdominal: General: Abdomen is flat. Palpations: Abdomen is soft. Tenderness: There is no abdominal tenderness. There is no guarding or rebound. Skin: General: Skin is warm and dry. Neurological: Mental Status: She is alert. Assessment and Plan ASSESSMENT/PLAN: 1. URI, acute - ICD9: 465.9, ICD10: J06.9 - Discussed viral etiology and rationale for treatment. - Symptomatic treatment with prn analgesia - Supportive care with fluids and rest - The patient may also use OTC cough and cold meds as needed. -Declines COVID/flu swab Diagnosis and treatment plan were discussed and questions were answered to the patient's satisfaction. Pt acknowledged understanding of concepts and follow up plan. Specific signs and symptoms that would indicate the need for higher level of care were discussed in detail warranting prompt ER evaluation. MARKOS Childs CNOV Observed: 08/22/2024 9:00 AM Status: COMPLETED Source: [facility] Office Visit ([facility]) LUCRECIA BRICENO ([id number]) 1 F Date Time Provider Department 08/22/24 9:00 AM REMI FUNGWSTR During your visit today, we recorded the following information about you: Temperature Pulse Respiration Blood pressure 98.1 degrees 78/minute 16/minute 126/80 Weight 79.4 kg Remi Fung PA 08/22/2024 9:19 AM Signed This note was created using [employer]. Subjective Lucrecia Briceno is a 18 year old female. HPI 18-year-old female presents for vomiting, congestion, fever. Patient states she started getting nasal congestion 2 days ago. She states that she has had vomiting 2 times since last night. No diarrhea. No abdominal pain. She states that she had a fever in the middle of the night with sweating and this morning her temp was 100 ?F. She did take Tylenol. She has not really had a cough or sore throat. 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 She states that she is taken ibuprofen and Lindsay [id number] which did help somewhat with her symptoms. She was able to eat and drink today. No concern for . No other complaint. PAST MEDICAL HISTORY Diagnosis Date ADHD (attention deficit hyperactivity disorder) 10/04/2008 Anxiety PAST SURGICAL HISTORY Procedure Laterality Date TONSILLECTOMY AND ADENOIDECTOMY <AGE 10 ALLERGIES Celexa [Citalopram], Metadate Cd [Methylphenidate], Vyvanse [Lisdexamfetamine], and Red Dye MEDICATIONS MULTIVITAMIN ORAL Take by mouth. carbonyl iron 15 mg chew Take 1 tablet by mouth once daily. dextroamphetamine-amphetamine (ADDERALL) 5 mg tablet Take 1 tablet by mouth once daily for 30 days. busPIRone (BUSPAR) 5 mg tablet Take 1 tablet by mouth two times a day as needed. LARISSIA 0.1-20 mg-mcg per tablet Take 1 tablet by mouth once daily. FAMILY HISTORY Problem Relation Age of Onset Hypothyroidism Mother Migraines Mother Anxiety disorder Mother other (pcos) Mother Hypertension Father ADD/ADHD Father Heart Attack Father ADD/ADHD Brother other (eoe) Brother Breast Cancer Maternal Grandmother Anxiety disorder Maternal Grandmother Depression Maternal Grandmother Hypothyroidism Maternal Grandmother Arthritis Maternal Grandmother Hypertension Maternal Grandfather Anxiety disorder Maternal Grandfather Depression Maternal Grandfather Arthritis Maternal Grandfather Breast Cancer Paternal Grandmother No Known Problems Paternal Grandfather Social History Tobacco Use Smoking status: Never Smokeless tobacco: Never Vaping Use Vaping status: Never Used Substance Use Topics Alcohol use: Never Drug use: Never Review of Systems Constitutional: Positive for chills and fever. HENT: Positive for congestion. Negative for ear pain and sore throat. Respiratory: Negative for cough and shortness of breath. Cardiovascular: Negative for chest pain. Gastrointestinal: Positive for vomiting. Negative for diarrhea. Objective BP 126/80 Pulse 78 Temp 36.7 ?C (98.1 ?F) Resp 16 Wt 79.4 kg (175 lb 0.7 oz) LMP 03/29/2023 (Exact Date) SpO2 100% BMI 32.29 kg/m? Physical Exam Vitals and nursing note reviewed. Constitutional: General: She is not in acute distress. Appearance: Normal appearance. She is not toxic-appearing. HENT: Right Ear: Tympanic membrane and ear canal normal. Left Ear: Tympanic membrane and ear canal normal. Nose: Congestion present. Mouth/Throat: Mouth: Mucous membranes are moist. Pharynx: No oropharyngeal exudate. Eyes: Conjunctiva/sclera: Conjunctivae normal. Cardiovascular: Rate and Rhythm: Normal rate and regular rhythm. Pulmonary: Effort: Pulmonary effort is normal. Breath sounds: Normal breath sounds. Abdominal: General: Abdomen is flat. Palpations: Abdomen is soft. Tenderness: There is no abdominal tenderness. There is no guarding or rebound. Skin: General: Skin is warm and dry. Neurological: Mental Status: She is alert. Assessment and Plan ASSESSMENT/PLAN: 1. URI, acute - ICD9: 465.9, ICD10: J06.9 - Discussed viral etiology and rationale for treatment. - Symptomatic treatment with prn analgesia - Supportive care with fluids and rest - The patient may also use OTC cough and cold meds as needed. -Declines COVID/flu swab Diagnosis and treatment plan were discussed and questions were answered to the patient's satisfaction. Pt acknowledged understanding of concepts and follow up plan. Specific signs and symptoms that would indicate the need for higher level of care were discussed in detail warranting prompt ER evaluation. MARKOS Childs Allergies As of Date: 08/22/2024 Noted Allergy Reaction CELEXA (CITALOPRAM) 05/18/2022 5 - Intolerance Comments: Mood changes, suicidal METADATE CD (METHYLPHENIDATE) 08/11/2024 5 - Intolerance Comments: Makes her very mean VYVANSE (LISDEXAMFETAMINE) 05/18/2022 5 - Intolerance Comments: Mood changes RED DYE 08/08/2019 15 - Contraindication-Medical Cao*14 - Other: See Comments Comments: Patient becomes very hyper. No other reactions. Date Reviewed: 08/22/2024 Reviewed by: Delmis Mejia MA - Fully Assessed Reason for Visit: Sinus Problem [99] Cmt: sinus pressure, drainage, cough and fever x 1 day Primary Visit Diagnosis:URI, acute [J06.9] Prescriptions as of 08/22/2024 - MULTIVITAMIN ORAL Take by mouth. - carbonyl iron 15 mg chew Take 1 tablet by mouth once daily. - dextroamphetamine-amphetamine (ADDERALL) 5 mg tablet Take 1 tablet by mouth once daily for 30 days. - busPIRone (BUSPAR) 5 mg tablet Take 1 tablet by mouth two times a day as needed. - LARISSIA 0.1-20 mg-mcg per tablet Take 1 tablet by mouth once daily. Problem List As Of Date 08/22/2024 Noted Resolved MATEO (generalized anxiety disorder) [F41.1] 05/18/2022 ADHD (attention deficit hyperactivity disorder)*05/18/2022 Mood disorder (HCC) [F39] 05/18/2022 Letter Text Encounter Status:Closed by REMI FUNG on 08/22/24 PROGRESS Observed: 08/11/2024 11:54 AM Status: COMPLETED Source: [facility] ID: [id number] Author: LIZZETTE TINEO APRN.[facility] Service: ? Author Type: Nurse Practitioner Type: Progress Notes Filed: 08/11/2024 15:04 Note Text: Chief Complaint Patient presents with: Employment Physical: Last TB completed 11/2023 Medication Follow-up: Wants to discuss other med options, not taking Methylphenidate or hydroxyzine due to side effects HPI Lucrecia Briceno is a 18 year old female who presents here today for Above Complaints.. Here for her yearly physical, needs form filled out for employment. ADHD-has used Adderall and Metadate in the past. Metadate made her angry so she stopped it. Would like to try going back on a low dose of Adderall to help with her focus and motivation. She did tolerate this well in the past. Thyroid-last time she had labs in 04/2024 her free T4 was slightly decreased, TSH was normal. She has a significant family hx of thyroid disease, wondering how this should be followed. Iron-taking chewable. Multivitamin daily. Situational anxiety. Mother takes prn Buspar, patient would like to try this medication as well. Past medical history, appointments, medications, allergies reviewed. Previous Medical History PAST MEDICAL HISTORY Diagnosis Date ADHD (attention deficit hyperactivity disorder) 10/04/2008 Anxiety Previous Surgical History PAST SURGICAL HISTORY Procedure Laterality Date TONSILLECTOMY AND ADENOIDECTOMY <AGE 10 Family History FAMILY HISTORY Problem Relation Age of Onset Hypothyroidism Mother Migraines Mother Anxiety disorder Mother other (pcos) Mother Hypertension Father ADD/ADHD Father Heart Attack Father ADD/ADHD Brother other (eoe) Brother Breast Cancer Maternal Grandmother Anxiety disorder Maternal Grandmother Depression Maternal Grandmother Hypothyroidism Maternal Grandmother Arthritis Maternal Grandmother Hypertension Maternal Grandfather Anxiety disorder Maternal Grandfather Depression Maternal Grandfather Arthritis Maternal Grandfather Breast Cancer Paternal Grandmother No Known Problems Paternal Grandfather Patient Allergies ALLERGIES Allergen Reactions Celexa [Citalopram] Intolerance Mood changes, suicidal Vyvanse [Lisdexamfe* Intolerance Mood changes Red Dye Contraindication-Medical Surgical, Other: See Comments Patient becomes very hyper. No other reactions. Current Medications Current Outpatient Medications on File Prior to Visit Medication Sig MULTIVITAMIN ORAL Take by mouth. LARISSIA 0.1-20 mg-mcg per tablet Take 1 tablet by mouth once daily. Ascorbic Acid (VITAMIN C) 1,000 mg tablet Take 1 tablet by mouth once daily. (Patient not taking: Reported on 08/11/2024) Cholecalciferol, Vitamin D3, 50 mcg (2,000 unit) cap Take 1 capsule by mouth once daily. (Patient not taking: Reported on 08/11/2024) cyanocobalamin (VITAMIN B-12) 1,000 mcg tab Take 1 tablet by mouth once daily. (Patient not taking: Reported on 08/11/2024) ferrous sulfate 325 mg (65 mg iron) tablet Take 1 tablet by mouth two times a day with meals. (Patient not taking: Reported on 08/11/2024) methylphenidate CD (METADATE CD) 10 mg biphasic capsule Take 1 capsule by mouth once daily for 30 days. hydrOXYzine pamoate (VISTARIL) 25 mg capsule TAKE 1 CAPSULE BY MOUTH EVERYDAY AT BEDTIME. MAY TAKE 1 CAPSULE DURING THE DAY IF NEEDED FOR ANXIETY (Patient not taking: Reported on 08/11/2024) No current facility-administered medications on file prior to visit. Social History Social History Tobacco Use Smoking status: Never Smokeless tobacco: Never Vaping Use Vaping status: Never Used Substance Use Topics Alcohol use: Never Drug use: Never Review of Symptoms REVIEW OF SYSTEMS See HPI, otherwise negative EXAM: BP 100/62 (BP Site: Left Arm, BP Position: Sitting, BP Cuff Size: Regular Adult) Pulse 67 Resp 16 Ht 156.8 cm (5' 1.73) Wt 77.7 kg (171 lb 4.8 oz) LMP 03/29/2023 (Exact Date) SpO2 98% BMI 31.60 kg/m? General Appearance: Well appearing, alert, in no acute distress, well-hydrated, well nourished. and Obese. Lungs: Lungs clear to auscultation. No wheezing, rhonchi, rales.. Heart: RRR without murmur, gallop, or rubs. No ectopy. Psychiatric: pleasant, cooperative.. Health Maintenance List Meningococcal B Vaccine: Consider Based On Risk(1 of 2 - Patient Seeks Protection) Never done Hepatitis C Screening Never done GC (Gonorrhea) Screening (18-24) due on 05/11/2024 Chlamydia Screening (18-24) due on 05/11/2024 Influenza Vaccine(1) due on 04/02/2025 HPV Vaccine(1 - 3-dose series) due on 08/11/2025 Covid-19 Vaccine(1 - 2023-25 season) due on 08/11/2025 Depression Screening due on 11/22/2024 DTaP,Tdap,Td Vaccine(9 - Td or Tdap) due on 03/06/2029 Hepatitis B Vaccine Completed HIV Screening Discontinued Data reviewed Previous records, office notes, PDMP report PDMP website checked and validated. All prescriptions have been APPROPRIATELY filled. No suspicious activity was identified. 08/11/2024 by Lizzette Tineo CNP. ASSESSMENT/PLAN: 1. Iron deficiency - ICD9: 280.9, ICD10: E61.1 (primary diagnosis) - IRON, CARBONYL 15 MG CHEWABLE TABLET 2. Family history of thyroid disease - ICD9: V18.19, ICD10: Z83.49 - IRON, CARBONYL 15 MG CHEWABLE TABLET 3. MATEO (generalized anxiety disorder) - ICD9: 300.02, ICD10: F41.1 - BUSPIRONE 5 MG TABLET 4. Situational anxiety - ICD9: 300.09, ICD10: F41.8 - BUSPIRONE 5 MG TABLET 5. ADHD (attention deficit hyperactivity disorder), combined type - ICD9: 314.01, ICD10: F90.2 - DEXTROAMPHETAMINE-AMPHETAMINE 5 MG TABLET 6. Mood disorder (HCC) - ICD9: 296.90, ICD10: F39 - DEXTROAMPHETAMINE-AMPHETAMINE 5 MG TABLET - BUSPIRONE 5 MG TABLET Lizzette Tineo APRN.CNP CNOV Observed: 08/11/2024 11:20 AM Status: COMPLETED Source: [facility] LUCRECIA BRICENO ([id number]) 1 F Date Time Provider Department 08/11/24 11:20 AM LIZZETTE TINEO During your visit today, we recorded the following information about you: Pulse Respiration Blood pressure Weight 67/minute 16/minute 100/62 77.7 kg Height 1.568 m Lizzette Tineo APRN.CNP 08/11/2024 3:04 PM Signed Chief Complaint Patient presents with: Employment Physical: Last TB completed 11/2023 Medication Follow-up: Wants to discuss other med options, not taking Methylphenidate or hydroxyzine due to side effects HPI Lucrecia Briceno is a 18 year old female who presents here today for Above Complaints.. Here for her yearly physical, needs form filled out for employment. ADHD-has used Adderall and Metadate in the past. Metadate made her angry so she stopped it. Would like to try going back on a low dose of Adderall to help with her focus and motivation. She did tolerate this well in the past. Thyroid-last time she had labs in 04/2024 her free T4 was slightly decreased, TSH was normal. She has a significant family hx of thyroid disease, wondering how this should be followed. Iron-taking chewable. Multivitamin daily. Situational anxiety. Mother takes prn Buspar, patient would like to try this medication as well. Past medical history, appointments, medications, allergies reviewed. Previous Medical History PAST MEDICAL HISTORY Diagnosis Date ADHD (attention deficit hyperactivity disorder) 10/04/2008 Anxiety Previous Surgical History PAST SURGICAL HISTORY Procedure Laterality Date TONSILLECTOMY AND ADENOIDECTOMY <AGE 10 Family History FAMILY HISTORY Problem Relation Age of Onset Hypothyroidism Mother Migraines Mother Anxiety disorder Mother other (pcos) Mother Hypertension Father ADD/ADHD Father Heart Attack Father ADD/ADHD Brother other (eoe) Brother Breast Cancer Maternal Grandmother Anxiety disorder Maternal Grandmother Depression Maternal Grandmother Hypothyroidism Maternal Grandmother Arthritis Maternal Grandmother Hypertension Maternal Grandfather Anxiety disorder Maternal Grandfather Depression Maternal Grandfather Arthritis Maternal Grandfather Breast Cancer Paternal Grandmother No Known Problems Paternal Grandfather Patient Allergies ALLERGIES Allergen Reactions Celexa [Citalopram] Intolerance Mood changes, suicidal Vyvanse [Lisdexamfe* Intolerance Mood changes Red Dye Contraindication-Medical Surgical, Other: See Comments Patient becomes very hyper. No other reactions. Current Medications Current Outpatient Medications on File Prior to Visit Medication Sig MULTIVITAMIN ORAL Take by mouth. LARISSIA 0.1-20 mg-mcg per tablet Take 1 tablet by mouth once daily. Ascorbic Acid (VITAMIN C) 1,000 mg tablet Take 1 tablet by mouth once daily. (Patient not taking: Reported on 08/11/2024) Cholecalciferol, Vitamin D3, 50 mcg (2,000 unit) cap Take 1 capsule by mouth once daily. (Patient not taking: Reported on 08/11/2024) cyanocobalamin (VITAMIN B-12) 1,000 mcg tab Take 1 tablet by mouth once daily. (Patient not taking: Reported on 08/11/2024) ferrous sulfate 325 mg (65 mg iron) tablet Take 1 tablet by mouth two times a day with meals. (Patient not taking: Reported on 08/11/2024) methylphenidate CD (METADATE CD) 10 mg biphasic capsule Take 1 capsule by mouth once daily for 30 days. hydrOXYzine pamoate (VISTARIL) 25 mg capsule TAKE 1 CAPSULE BY MOUTH EVERYDAY AT BEDTIME. MAY TAKE 1 CAPSULE DURING THE DAY IF NEEDED FOR ANXIETY (Patient not taking: Reported on 08/11/2024) No current facility-administered medications on file prior to visit. Social History Social History Tobacco Use Smoking status: Never Smokeless tobacco: Never Vaping Use Vaping status: Never Used Substance Use Topics Alcohol use: Never Drug use: Never Review of Symptoms REVIEW OF SYSTEMS See HPI, otherwise negative EXAM: BP 100/62 (BP Site: Left Arm, BP Position: Sitting, BP Cuff Size: Regular Adult) Pulse 67 Resp 16 Ht 156.8 cm (5' 1.73) Wt 77.7 kg (171 lb 4.8 oz) LMP 03/29/2023 (Exact Date) SpO2 98% BMI 31.60 kg/m? General Appearance: Well appearing, alert, in no acute distress, well-hydrated, well nourished. and Obese. Lungs: Lungs clear to auscultation. No wheezing, rhonchi, rales.. Heart: RRR without murmur, gallop, or rubs. No ectopy. Psychiatric: pleasant, cooperative.. Health Maintenance List Meningococcal B Vaccine: Consider Based On Risk(1 of 2 - Patient Seeks Protection) Never done Hepatitis C Screening Never done GC (Gonorrhea) Screening (18-24) due on 05/11/2024 Chlamydia Screening (18-24) due on 05/11/2024 Influenza Vaccine(1) due on 04/02/2025 HPV Vaccine(1 - 3-dose series) due on 08/11/2025 Covid-19 Vaccine(1 - 2023-25 season) due on 08/11/2025 Depression Screening due on 11/22/2024 DTaP,Tdap,Td Vaccine(9 - Td or Tdap) due on 03/06/2029 Hepatitis B Vaccine Completed HIV Screening Discontinued Data reviewed Previous records, office notes, PDMP report PDMP website checked and validated. All prescriptions have been APPROPRIATELY filled. No suspicious activity was identified. 08/11/2024 by Lizzette Tineo CNP. ASSESSMENT/PLAN: 1. Iron deficiency - ICD9: 280.9, ICD10: E61.1 (primary diagnosis) - IRON, CARBONYL 15 MG CHEWABLE TABLET 2. Family history of thyroid disease - ICD9: V18.19, ICD10: Z83.49 - IRON, CARBONYL 15 MG CHEWABLE TABLET 3. MATEO (generalized anxiety disorder) - ICD9: 300.02, ICD10: F41.1 - BUSPIRONE 5 MG TABLET 4. Situational anxiety - ICD9: 300.09, ICD10: F41.8 - BUSPIRONE 5 MG TABLET 5. ADHD (attention deficit hyperactivity disorder), combined type - ICD9: 314.01, ICD10: F90.2 - DEXTROAMPHETAMINE-AMPHETAMINE 5 MG TABLET 6. Mood disorder (HCC) - ICD9: 296.90, ICD10: F39 - DEXTROAMPHETAMINE-AMPHETAMINE 5 MG TABLET - BUSPIRONE 5 MG TABLET Lizzette Tineo APRN.[facility] Allergies As of Date: 08/11/2024 Noted Allergy Reaction CELEXA (CITALOPRAM) 05/18/2022 5 - Intolerance Comments: Mood changes, suicidal METADATE CD (METHYLPHENIDATE) 08/11/2024 5 - Intolerance Comments: Makes her very mean VYVANSE (LISDEXAMFETAMINE) 05/18/2022 5 - Intolerance Comments: Mood changes RED DYE 08/08/2019 15 - Contraindication-Medical Cao*14 - Other: See Comments Comments: Patient becomes very hyper. No other reactions. Date Reviewed: 08/11/2024 Reviewed by: Lizzette Tineo APRN.[employer] - Fully Assessed Reason for Visit: Employment Physical [40] Cmt: Last TB completed 11/2023 Medication Follow-up [270] Cmt: Wants to discuss other med options, not taking Methylphenidate or hydroxyzine due to side effects Primary Visit Diagnosis:Iron deficiency [E61.1] Other Visit Diagnoses:Family history of thyroid disease [Z83.49] MATEO (generalized anxiety disorder) [F41.1] Situational anxiety [F41.8] ADHD (attention deficit hyperactivity disorder), combined type [F90.2] Mood disorder (HCC) [F39] Order(s):carbonyl iron 15 mg chewTake 1 tablet by mouth once daily.Disp: 60 tabletRfl: 11 dextroamphetamine-amphetamine (ADDERALL) 5 mg tabletTake 1 tablet by mouth once daily for 30 days.Disp: 30 tabletRfl: 0 busPIRone (BUSPAR) 5 mg tabletTake 1 tablet by mouth two times a day as needed.Disp: 60 tabletRfl: 1 LARISSIA 0.1-20 mg-mcg per tabletTake 1 tablet by mouth once daily.Disp: 28 tabletRfl: 2 Prescriptions as of 08/11/2024 - MULTIVITAMIN ORAL Take by mouth. - carbonyl iron 15 mg chew Take 1 tablet by mouth once daily. - dextroamphetamine-amphetamine (ADDERALL) 5 mg tablet Take 1 tablet by mouth once daily for 30 days. - busPIRone (BUSPAR) 5 mg tablet Take 1 tablet by mouth two times a day as needed. - LARISSIA 0.1-20 mg-mcg per tablet Take 1 tablet by mouth once daily. Problem List As Of Date 08/11/2024 Noted Resolved MATEO (generalized anxiety disorder) [F41.1] 05/18/2022 ADHD (attention deficit hyperactivity disorder)*05/18/2022 Mood disorder (HCC) [F39] 05/18/2022 Prescriptions ordered this encounter Disp Refills Start End IRON, CARBONYL 15 MG CHEWABLE TABLET 60 t* 11 08/11/2024 08/11/2025 Route: ORAL Sig: Take 1 tablet by mouth once daily. DEXTROAMPHETAMINE-AMPHETAMINE 5 MG T* 30 t* 0 08/11/2024 09/10/2024 Route: ORAL Sig: Take 1 tablet by mouth once daily for 30 days. BUSPIRONE 5 MG TABLET 60 t* 1 08/11/2024 Route: ORAL Sig: Take 1 tablet by mouth two times a day as needed. LARISSIA 0.1 MG-20 MCG TABLET 28 t* 2 08/11/2024 11/03/2024 Route: ORAL Sig: Take 1 tablet by mouth once daily. Medications Discontinued During This Encounter Prescriptions - Ascorbic Acid (VITAMIN C) 1,000 mg tablet (Discontinued) Reported on 08/11/2024 - Cholecalciferol, Vitamin D3, 50 mcg (2,000 unit) cap (Discontinued) Reported on 08/11/2024 - cyanocobalamin (VITAMIN B-12) 1,000 mcg tab (Discontinued) Reported on 08/11/2024 - ferrous sulfate 325 mg (65 mg iron) tablet (Discontinued) Reported on 08/11/2024 - hydrOXYzine pamoate (VISTARIL) 25 mg capsule (Discontinued) Reported on 08/11/2024 - methylphenidate CD (METADATE CD) 10 mg biphasic capsule (Discontinued) Take 1 capsule by mouth once daily for 30 days. - LARISSIA 0.1-20 mg-mcg per tablet (Discontinued) Take 1 tablet by mouth once daily. Level of Service: OFFICE/OUTPATIENT ESTABLISHED LOW MDM 20 MIN [55966] Disposition: Return in about 6 months (around 02/08/2025) for medication, mood, ?thyroid. Follow-up and Disposition History for Encounter Date Provider Department Center 08/11/2024 [id number]-OVBRKSNZLIZZETTE TINEOPWS [facility] Amanda Encounter Status:Closed by LIZZETTE TINEO on 08/11/24 CNCO Observed: 08/11/2024 12:00 AM Status: COMPLETED Source: [facility] Letter Text ALLERGIES DATE TYPE / CODE NAME / CODE REACTION SEVERITY SOURCE 08/11/2024 DRUG INGREDI/[id number] 03(SNOMED CT) METHYLPHENIDATE INTOLERANCE [facility] 05/18/2022 DRUG INGREDI/[id number] 03(SNOMED CT) CITALOPRAM INTOLERANCE [facility] 05/18/2022 DRUG INGREDI/[id number] 03(SNOMED CT) LISDEXAMFETAMINE INTOLERANCE [facility] 08/08/2019 DRUG INGREDI/[id number] 03(SNOMED CT) RED DYE CONTRAINDICA Low [facility] ENCOUNTERS ADMIT/DISCHARGE ACCOUNT NUMBER ADMITTING ENCOUNTER CLASS LOC ATION SOURCE 05/16/2025/ 5 [id number] [facility] 02/22/2025/ 5 [id number] [facility] 11/24/2024/ 5 [id number] Ambulatory [facility] 11/22/2024/ 5 [id number] Ambulatory [facility] [facility] 10/16/2024/ 5 [id number] [facility] 09/19/2024/ 4 [id number] [facility] 09/05/2024/ 4 [id number] [facility] 08/22/2024/ 4 [id number] [facility] 08/11/2024/ 4 [id number] [facility] ENCOUNTER GUARANTOR PAYER SUBSCRIBER SOURCE 05/16/2025 Primary Insurance:BLUE CARD PPO OOSPolicy Number: [id number] Date:0258-04-56Snnf Name:Katharina SOLARES: [id number] [place] [address] [facility] 02/22/2025 Primary Insurance:BLUE CARD PPO OOSPolicy Number: [id number] Date:3591-79-64Znlm Name:Katharina SOLARES: [id number] [place] [address] [facility] 11/24/2024 Primary Insurance:BLUE CARD PPO OOSPolicy Number: [id number] Date:2368-82-09Dtwy Name:Katharina SOLARES: [id number] [place] [address] [facility] 11/22/2024 Primary Insurance:BLUE CARD PPO OOSPolicy Number: [id number] Date:9408-03-06Ktcu Name:Katharina SOLARES: [id number] [place] [address] [facility] 10/16/2024 Primary Insurance:BLUE CARD PPO OOSPolicy Number: [id number] Date:0102-50-44Yxtp Name:Katharina SOLARES: [id number] [place] [address] [facility] 09/19/2024 Primary Insurance:BLUE CARD PPO OOSPolicy Number: [id number] Date:5055-12-10Rdtw Name:Katharina SOLARES: [id number] [facility] [place] [address] [facility] 09/05/2024 Primary Insurance:BLUE CARD PPO OOSPolicy Number: [id number] Date:1880-03-58Mvdf Name:Katharina SOLARES: [id number] [facility] [place] [address] [facility] 08/22/2024 Primary Insurance:BLUE CARD PPO OOSPolicy Number: [id number] Date:5402-84-89Eagv Name:Katharina SOLARES: [id number] [facility] [place] [address] [facility] 08/11/2024 Primary Insurance:BLUE CARD PPO OOSPolicy Number: [id number] Date:5998-72-99Oehw Name:Katharina SOLARES: [id number] [place] [address] [facility]
[2025-06-30 09:41] LABS: hCG Titer Quant., Serum 115 mIU/mL (<9 non-preg)
== END | disposition home or self-care (01) ==
LOC: LAB 08:32
PROVIDERS: PCP Nurse Practitioner Family; Referring Provider Obstetrics & Gynecology; Visit Provider Obstetrics & Gynecology
DX: R79.89 Other specified abnormal findings of blood chemistry (principal)
CPT/HCPCS: 36415; 84702

== ENCOUNTER → 2025-07-02 | Outpatient (CLI) | payer BC, SELFPAY ==
[2025-07-02 20:09] LABS: hCG Titer Quant., Serum 321 mIU/mL (<9 non-preg)
[2025-07-05 08:09] LABS: Protein S, Funtional 22 % (63-140)
== END | disposition home or self-care (01) ==
LOC: BWCLAB 13:44
PROVIDERS: PCP Nurse Practitioner Family; Referring Provider Obstetrics & Gynecology; Visit Provider Obstetrics & Gynecology
DX: O26.899 Other specified pregnancy related conditions, unspecified trimester (principal); R10.2 Pelvic and perineal pain; Z3A.00 Weeks of gestation of pregnancy not specified
CPT/HCPCS: 36415; 84702; 85305; 85306

== ENCOUNTER → 2025-07-04 | Outpatient (CLI) | payer BC, SELFPAY ==
[2025-07-04 10:36] LABS: hCG Titer Quant., Serum 599 mIU/mL (<9 non-preg)
== END | disposition home or self-care (01) ==
LOC: LAB 08:09
PROVIDERS: PCP Nurse Practitioner Family; Referring Provider Obstetrics & Gynecology; Visit Provider Obstetrics & Gynecology
DX: Z34.90 Encounter for supervision of normal pregnancy, unspecified, unspecified trimester (principal)
CPT/HCPCS: 36415; 84702

== ENCOUNTER → 2025-07-06 | Outpatient (CLI) | payer BC, SELFPAY ==
[2025-07-06 10:38] LABS: hCG Titer Quant., Serum 1158 mIU/mL (<9 non-preg)
== END | disposition home or self-care (01) ==
PROVIDERS: Obstetrics & Gynecology; PCP Nurse Practitioner Family; Referring Provider Obstetrics & Gynecology; Visit Provider Obstetrics & Gynecology
DX: O20.0 Threatened abortion (principal); Z3A.00 Weeks of gestation of pregnancy not specified
CPT/HCPCS: 36415; 84702

== ENCOUNTER → 2025-07-13 | Outpatient (CLI) | payer BC, SELFPAY ==
--- NOTE | 2025-07-13 07:18 | US_ITS ---
PROCEDURE: TRANSVAGINAL W/PREG US 07/13/2025 REASON FOR EXAM: VIABILITY TECHNIQUE: Procedure Code: USTVAGP Modality: US Procedure: TRANSVAGINAL W/PREG US COMPARISON: June 26, 2025. FINDINGS: Comments: LMP: May 21, 2025. Number of Gestational Sacs: 1 Gestational Sac Shape: Normal Number of Fetuses: 1 Heart Rate: Not detected. Yolk Sac: Present and unremarkable. Placenta: Presently not well-visualized Uterine Abnormalities: Maternal uterus is unremarkable. Ovaries / Adnexa: Corpus luteum cyst is seen in the right ovary measuring 2.3 cm x 2.1 cm 1.4 cm. DIMENSIONS: Parameter Measurement / EGA [place] Rump Length: Not visualized at this time. Gestational Sac: 1.1 cm/5 weeks and 6 days Yolk Sac: 2 mm./ ESTIMATED GESTATIONAL AGE: By Ultrasound: 5 weeks and 6 days By LMP: 7 weeks and 4 days ESTIMATED DATE OF DELIVERY: By Ultrasound: March 09, 2026 By LMP: February 25, 2026 US/Transvaginal w/Preg US IMPRESSION: Intrauterine gestational sac seen. No pole is seen at this time. Corpus luteum cyst seen in the right ovary. Follow-up recommended. Reading [facility]
== END | disposition home or self-care (01) ==
LOC: US 07:14
PROVIDERS: PCP Nurse Practitioner Family; Referring Provider Obstetrics & Gynecology; Visit Provider Obstetrics & Gynecology
DX: Z34.90 Encounter for supervision of normal pregnancy, unspecified, unspecified trimester (principal)
CPT/HCPCS: 76817

== ENCOUNTER → 2025-07-27 | Outpatient (CLI) | payer BC, SELFPAY ==
[2025-07-30 20:08] LABS: Chlamydia By Nucleic Acid AMP Negative (Negative); Gonococcus By Nucleic Acid AMP Negative (Negative)
== END | disposition home or self-care (01) ==
LOC: BWCLAB 10:49
PROVIDERS: PCP Nurse Practitioner Family; Visit Provider Obstetrics & Gynecology
DX: O09.90 Supervision of high risk pregnancy, unspecified, unspecified trimester (principal); Z3A.00 Weeks of gestation of pregnancy not specified
CPT/HCPCS: 87086; 87491; 87591; 88175; G0145

== ENCOUNTER → 2025-08-23 | Outpatient (CLI) | payer BC, SELFPAY ==
[2025-08-23 12:26] LABS: Hematocrit 39.3 % (37-47); Hemoglobin 12.9 g/dL (12.0-15.0); Immature Granulocytes Count 0.060 X10^3/uL (0.0-0.0); Mean Corp Hgb Conc 32.8 g/dL (32-36); Mean Corpuscular Volume 93.1 fL (81-99); Mean Platelet Vol. 10.7 fl (6.2-12.0); NRBC Flagged by Analyzer 0 % (0-5); Platelet Count 292 K/mm3 (150-450); RBC Distribution Width CV 13.1 % (11.6-14.6); RBC Distribution Width SD 44.6 fl (35.1-43.9); Red Blood Count 4.22 M/mm3 (4.2-5.4); White Blood Count 11.3 K/mm3 (4.4-11.0)
[2025-08-23 14:04] LABS: HIV Nonreactive (Nonreactive); Hepatitis B Surface Antigen Nonreactive (Nonreactive); Hepatitis C Antibody Nonreactive (Nonreactive); Syphilis Antibodies Nonreactive (Nonreactive)
== END | disposition home or self-care (01) ==
PROVIDERS: Obstetrics & Gynecology; PCP Nurse Practitioner Family; Visit Provider Student in an Organized Health Care Education/Training Program
DX: Z34.01 Encounter for supervision of normal first pregnancy, first trimester (principal)
CPT/HCPCS: 36415; 83036; 84439; 84443; 85025; 86703; 86762; 86780; 86803; 86850; 86900; 86901; 87340